=== PATIENT | female | born 1990 | race Caucasian/White ===

== ENCOUNTER → 2017-11-28 10:17 | Outpatient (CLI) | payer BC, SELFPAY ==
[2017-11-28 11:05] LABS: Basophils % 0.4 % (0.1-2.0); Eosinophils % 0.3 % (0.1-12.0); Hematocrit 43.4 % (37.0-47.0); Hemoglobin 14.7 g/dL (12.2-16.2); Lymphocytes # 1.7 K/mm3 (0.7-4.5); Lymphocytes % 19.2 K/mm3 (10-50); Mean Corpuscular HGB Conc 33.8 g/dL (31.8-35.4); Mean Corpuscular Hemoglobin 31.4 pg (27.0-31.2); Mean Corpuscular Volume 92.7 fl (81-99); Mean Platelet Volume 9.1 fl (7.4-10.4); Monocytes # 0.5 K/mm3 (0.1-1.0); Monocytes % 5.5 % (1.7-9.3); Neutrophils # 6.5 K/mm3 (1.8-7.8); Neutrophils % 74.5 % (37.0-80.0); Platelet Count 217 K/mm3 (142-424); Red Blood Count 4.68 M/mm3 (4.20-5.40); White Blood Count 8.7 K/mm3 (4.8-10.8)
[2017-11-28 11:42] LABS: Alanine Aminotransferase 17 U/L (12-78); Albumin Level 4.2 gm/dL (3.4-5.0); Albumin/Globulin Ratio 1.2 (1.1-1.8); Alkaline Phosphatase 103 U/L (46-116); Aspartate Amino Transferase 14 U/L (15-37); Bilirubin,Total 0.4 mg/dL (0.2-1.0); Blood Urea Nitrogen 4 mg/dL (7-18); Calcium 9.4 mg/dL (8.5-10.1); Carbon Dioxide 29 mmol/L (21.0-32.0); Chloride 105 mmol/L (98-107); Creatinine,Serum 0.68 mg/dL (0.55-1.02); Estimated Glomerular Filt Rate 102 ml/min (>60); GFR (African American) 124 ML/MIN (>60); Globulin 3.4 gm/dl (1.3-3.2); Glucose 96 mg/dL (74-106); Sodium 142 mmol/L (136-145); Total Protein,Serum 7.6 gm/dL (6.4-8.2)
== END ==
PROVIDERS: Visit Provider Nurse Practitioner Family
DX: R10.30 Lower abdominal pain, unspecified (principal)
CPT/HCPCS: 36415; 80053; 85025

== ENCOUNTER → 2018-12-15 13:42 | Outpatient (CLI) | payer MEDICAID, SELFPAY ==
--- NOTE | 2018-12-15 13:47 | XR_ITS ---
XR chest 2V HISTORY: ITS.REASON: SOB, COUGH ORDERING PHYSICIAN: Unique Ervin APRN PATIENT AGE: 28 years COMPARISON: 08/26/2012 FINDINGS: The cardiomediastinal silhouette and pulmonary vascularity are within normal limits. The lungs are clear without infiltrates, suspicious nodules, or pleural effusions. There is a faint nodular opacity overlying the central aspect of the heart on the lateral view unchanged and may be due to a granuloma. There is minimal upper thoracic curvature convex right. IMPRESSION: No change with no acute finding
== END ==
PROVIDERS: PCP Nurse Practitioner Family; Visit Provider Nurse Practitioner Family
DX: R06.02 Shortness of breath (principal); R05 Cough
CPT/HCPCS: 71046

== ENCOUNTER → 2019-01-28 12:21 | Outpatient (CLI) | payer MEDICAID, SELFPAY ==
[2019-01-28 12:53] LABS: Basophils % 0.3 % (0.1-2.0); Eosinophils # 0.1 K/mm3 (0.0-0.4); Hemoglobin 13.9 g/dL (12.2-16.2); Lymphocytes # 1.7 K/mm3 (0.7-4.5); Lymphocytes % 31.1 % (10-50); Mean Corpuscular HGB Conc 32.3 g/dL (31.8-35.4); Mean Corpuscular Hemoglobin 29.2 pg (27.0-31.2); Mean Corpuscular Volume 90.3 fl (81-99); Mean Platelet Volume 8.7 fl (7.4-10.4); Monocytes # 0.4 K/mm3 (0.1-1.0); Monocytes % 7.2 % (1.7-9.3); Neutrophils # 3.3 K/mm3 (1.8-7.8); Neutrophils % 60.4 % (37.0-80.0); Platelet Count 251 K/mm3 (142-424); Red Blood Count 4.76 M/mm3 (4.20-5.40); Red Cell Distribution Width 13.1 % (11.5-17.5); White Blood Count 5.5 K/mm3 (4.8-10.8)
[2019-01-28 14:15] LABS: Strep Scrn Group A (Rapid) Negative (Negative)
[2019-01-28 14:30] LABS: Alanine Aminotransferase 19 U/L (12-78); Albumin Level 3.6 gm/dL (3.4-5.0); Albumin/Globulin Ratio 1.1 (1.1-1.8); Alkaline Phosphatase 79 U/L (46-116); Anion Gap 13.3 mEq/L (5-15); Bilirubin,Total 0.5 mg/dL (0.2-1.0); Blood Urea Nitrogen 7 mg/dL (7-18); Calcium 9.2 mg/dL (8.5-10.1); Carbon Dioxide 28 mmol/L (21.0-32.0); Chloride 106 mmol/L (98-107); Creatinine,Serum 0.64 mg/dL (0.55-1.02); Estimated Glomerular Filt Rate 109 ml/min (>60); Free Thyroxine Index 2.5 ug/dL (5.93-13.13); GFR (African American) 132 ML/MIN (>60); Globulin 3.2 gm/dl (1.3-3.2); Glucose 66 mg/dL (74-106); Sodium 143 mmol/L (136-145); T4 (Thyroxine) 7.7 ug/dl (4.7-13.3); Thyroid Stimulating Hormone 0.64 uIU/ml (0.358-3.740); Total Protein,Serum 6.8 gm/dL (6.4-8.2); Triiodothryronine (T3) Uptake 33 % (31-39)
[2019-01-28 14:41] LABS: Potassium 4.3 mmoL/L (3.5-5.1)
[2019-01-28 14:42] LABS: Aspartate Amino Transferase 16 U/L (15-37)
[2019-01-29 22:05] LABS: EBV Ab VCA, IgM <36.0 U/mL (0.0-35.9); Vitamin B12 174 pg/mL (232-1245)
== END ==
PROVIDERS: Visit Provider Nurse Practitioner Family
DX: J02.9 Acute pharyngitis, unspecified (principal); R53.81 Other malaise; R06.02 Shortness of breath
CPT/HCPCS: 36415; 80053; 82607; 84436; 84443; 84479; 85025; 86665; 87430

== ENCOUNTER → 2019-02-05 08:24 | Outpatient (CLI) | payer MEDICAID, SELFPAY ==
--- NOTE | 2019-02-05 08:30 | US_ITS ---
US abdomen limited History: Ordering Physician:Unique Ervin APRN Patient Age: 28 years Comparison:None Findings:The visualized portions of the IVC and pancreas appear normal. Liver and portal vein are unremarkable. Common bile duct is normal measuring 1.8 cm. There are numerous shadowing echogenic foci in the lumen of the gallbladder and one such focus measures 10 mm in size. There is no gallbladder wall thickening or pericholecystic fluid. Visualized portions of the right kidney appear normal. Impression: Uncomplicated cholelithiasis.
== END ==
PROVIDERS: PCP Internal Medicine Adolescent Medicine; Visit Provider Nurse Practitioner Family
DX: R10.11 Right upper quadrant pain (principal)
CPT/HCPCS: 76705

== ENCOUNTER → 2019-02-06 11:02 | Outpatient (CLI) | payer MEDICAID, SELFPAY | PROVIDERS: PCP Nurse Practitioner Family; Visit Provider Nurse Practitioner Family | DX: R06.02 Shortness of breath (principal) | CPT/HCPCS: 94060; 94640 ==

== ENCOUNTER → 2019-03-18 15:30 | Outpatient (CLI) | payer MEDICAID, SELFPAY ==
[2019-03-18 16:57] LABS: HCG Qualitative, Serum Negative (Negative)
== END ==
PROVIDERS: Visit Provider Surgery
DX: K80.20 Calculus of gallbladder without cholecystitis without obstruction (principal)
CPT/HCPCS: 36415; 84703

== ENCOUNTER → 2019-04-16 12:00 | Outpatient (CLI) | payer OTHER, SELFPAY ==
[2019-04-16 12:28] LABS: Basophils % 0.6 % (0.1-2.0); Eosinophils # 0.1 K/mm3 (0.0-0.4); Eosinophils % 0.9 % (0.1-12.0); Hematocrit 43.5 % (37.0-47.0); Hemoglobin 14.1 g/dL (12.2-16.2); Lymphocytes # 2.2 K/mm3 (0.7-4.5); Lymphocytes % 33.1 % (10-50); Mean Corpuscular HGB Conc 32.4 g/dL (31.8-35.4); Mean Corpuscular Hemoglobin 31.1 pg (27.0-31.2); Mean Corpuscular Volume 95.8 fl (81-99); Mean Platelet Volume 9.1 fl (7.4-10.4); Monocytes # 0.2 K/mm3 (0.1-1.0); Monocytes % 3.7 % (1.7-9.3); Neutrophils % 61.6 % (37.0-80.0); Platelet Count 269 K/mm3 (142-424); Red Blood Count 4.54 M/mm3 (4.20-5.40); Red Cell Distribution Width 13.1 % (11.5-17.5); White Blood Count 6.5 K/mm3 (4.8-10.8)
[2019-04-17 17:13] LABS: Vitamin B12 480 pg/mL (232-1245)
== END ==
PROVIDERS: Visit Provider Nurse Practitioner Family
DX: E53.8 Deficiency of other specified B group vitamins (principal)
CPT/HCPCS: 36415; 82607; 85025

== ENCOUNTER → 2019-11-24 10:03 | Outpatient (CLI) | payer OTHER, SELFPAY ==
[2019-11-24 10:22] LABS: Basophils % 0.3 % (0.1-2.0); Eosinophils % 0.5 % (0.1-12.0); Hematocrit 42.6 % (37.0-47.0); Hemoglobin 13.8 g/dL (12.2-16.2); Lymphocytes # 2.1 K/mm3 (0.7-4.5); Lymphocytes % 26.9 % (10-50); Mean Corpuscular HGB Conc 32.4 g/dL (31.8-35.4); Mean Corpuscular Hemoglobin 30.5 pg (27.0-31.2); Mean Corpuscular Volume 94.1 fl (81-99); Mean Platelet Volume 9.3 fl (7.4-10.4); Monocytes # 0.4 K/mm3 (0.1-1.0); Monocytes % 5.6 % (1.7-9.3); Neutrophils # 5.1 K/mm3 (1.8-7.8); Neutrophils % 66.6 % (37.0-80.0); Platelet Count 229 K/mm3 (142-424); Red Blood Count 4.52 M/mm3 (4.20-5.40); Red Cell Distribution Width 14.1 % (11.5-17.5); White Blood Count 7.7 K/mm3 (4.8-10.8)
[2019-11-24 10:54] LABS: Chloride 106 mmol/L (98-107); Sodium 127 mmol/L (136-145)
[2019-11-24 10:55] LABS: Potassium 4.4 mmoL/L (3.5-5.1)
[2019-11-24 10:57] LABS: Alanine Aminotransferase 11 U/L (12-78); Aspartate Amino Transferase 19 U/L (14-36); Blood Urea Nitrogen 7 mg/dl (7-17); Estimated Glomerular Filt Rate 98 ml/min (>60); GFR (African American) 118 ML/MIN (>60)
[2019-11-24 10:58] LABS: Albumin Level 4.3 g/dl (3.5-5.0); Albumin/Globulin Ratio 1.6 (1.1-1.8); Calcium 8.9 mg/dl (8.4-10.2); Globulin 2.7 g/dL (1.3-3.2); Glucose 101 mg/dl (74-100)
[2019-11-24 11:41] LABS: Anion Gap 0.4 mEq/L (5-15); Bilirubin,Total 0.2 mg/dl (0.2-1.3); Carbon Dioxide 25 mmol/L (22.0-30.0)
[2019-11-24 11:51] LABS: Alkaline Phosphatase 54 U/L (38-126)
== END ==
PROVIDERS: Visit Provider Nurse Practitioner Family
DX: R10.32 Left lower quadrant pain (principal)
CPT/HCPCS: 36415; 80053; 85025

== ENCOUNTER → 2019-11-25 10:02 | Outpatient (CLI) | payer OTHER, SELFPAY ==
--- NOTE | 2019-11-25 10:07 | CT_ITS ---
PROCEDURE: CT ABDOMEN PELVIS WO CON CLINICAL INDICATION: LT SIDED ABD PAIN Left-sided abdominal pain COMPARISON: ABDPELW/O CT ABD PELVIS W/O CONTRAST from 07/23/2012 TECHNIQUE: Axial images obtained with sagittal and coronal reformats. All CT scans at the facility use one or more dose reduction, viz: automated exposure control, ma/kV adjustment per patient size (including targeted exams where dose is matched to indication, i.e. head), or iterative reconstruction technique. FINDINGS: LOWER THORAX: No acute finding ABDOMEN & PELVIS: Prior cholecystectomy. The liver, spleen, adrenal glands, pancreas, and kidneys have an unremarkable unenhanced CT appearance. No intestinal obstruction or free air. There is a mild amount of retained colonic feces. There is a reported history of an appendectomy. There is a mild amount of fluid in the pelvic region within the cul-de-sac area. Tubal ligation clips are present. There is an additional clip in the left lower quadrant. No acute bony anomalies. IMPRESSION: 1. There is a mild amount of fluid in the cul-de-sac etiology indeterminate. 2. Otherwise negative CT abdomen pelvis without contrast. Dictated by: Phuc Alexander MD 11/25/2019 16:19 Electronically signed by Phuc Alexander MD in [place] 11/25/2019 16:19
== END ==
PROVIDERS: PCP Internal Medicine Adolescent Medicine; Visit Provider Nurse Practitioner Family
DX: R10.9 Unspecified abdominal pain (principal)
CPT/HCPCS: 74176

== ENCOUNTER → 2019-11-26 11:21 | Outpatient (CLI) | payer OTHER, SELFPAY ==
[2019-11-26 12:28] LABS: Alanine Aminotransferase 9 U/L (12-78); Albumin Level 4.3 g/dl (3.5-5.0); Albumin/Globulin Ratio 1.7 (1.1-1.8); Alkaline Phosphatase 58 U/L (38-126); Anion Gap 10.1 mEq/L (5-15); Aspartate Amino Transferase 18 U/L (14-36); Bilirubin,Total 0.4 mg/dl (0.2-1.3); Blood Urea Nitrogen 9 mg/dl (7-17); Calcium 9.4 mg/dl (8.4-10.2); Carbon Dioxide 26 mmol/L (22.0-30.0); Chloride 104 mmol/L (98-107); Estimated Glomerular Filt Rate 117 ml/min (>60); GFR (African American) 141 ML/MIN (>60); Globulin 2.5 g/dL (1.3-3.2); Glucose 90 mg/dl (74-100); Potassium 4.1 mmoL/L (3.5-5.1); Sodium 136 mmol/L (136-145); Total Protein,Serum 6.8 g/dl (6.3-8.2)
== END ==
PROVIDERS: Visit Provider Internal Medicine Adolescent Medicine
DX: E87.1 Hypo-osmolality and hyponatremia (principal)
CPT/HCPCS: 36415; 80053

== ENCOUNTER → 2020-07-04 11:03 | Outpatient (CLI) | payer OTHER, SELFPAY ==
[2020-07-04 12:30] LABS: HCG Qualitative, Serum Negative (Negative)
[2020-07-04 12:32] LABS: Triiodothryronine (T3) Uptake 31 % (23.5-40.5)
[2020-07-04 12:33] LABS: Free Thyroxine Index 3.4 ug/dL (5.93-13.13); T4 (Thyroxine) 10.9 ug/dl (5.53-11.0)
[2020-07-04 12:46] LABS: Thyroid Stimulating Hormone 1.02 uIU/mL (0.465-4.68)
[2020-07-05 10:28] LABS: FSH 2.6 mIU/mL (.); Prolactin 7.3 ng/mL (4.8-23.3)
== END ==
PROVIDERS: Visit Provider Nurse Practitioner Obstetrics & Gynecology
DX: N92.6 Irregular menstruation, unspecified (principal)
CPT/HCPCS: 36415; 83001; 83002; 84146; 84436; 84443; 84479; 84703

== ENCOUNTER → 2020-07-14 14:07 | Outpatient (CLI) | payer OTHER, SELFPAY ==
--- NOTE | 2020-07-14 14:07 | US_ITS ---
PROCEDURE: US TRANSVAGINAL Referring Doctor: Austin Rajput Patient Age:30Y CLINICAL INDICATION: pelvic pain, ovarian cysts pelvic pain 1 COMPARISON: US PTV US PELVIS-TRANSVAGINAL ONLY from 03/24/2015 FINDINGS: Retroflexed uterus. Slight difficult to measure size Uterus, measuring 5.5 cm X 4.3 cm x 5.4 cm Endometrial stripe. 6.2 mm Right ovary mildly enlarged; left normal size. Satisfactory color Doppler flow patterns bilaterally Small amount of free fluid cul-de-sac but most likely physiologic; a similar amount of fluid on March 2015 ultrasound Right ovary 4.05 Cm length x 2.28 cm x 3.3 cm . Cysts at the right ovary: Largest measuring nearly 1.7 cm x1.3 cm. 3 other smaller follicular cysts are seen at the margin measuring up to 8 mm each Left ovary 2.36 cm x 1.8 cm x 2.9 cm 2 small follicular cyst imaged F left ovary the largest measuring 7 mm,; the other 5 mm. IMPRESSION: Normal size retroflexed uterus. Larger right ovary, measuring up to 4.05 cm Right ovary cysts most evident-the largest measure up to 1.7 cm . Left ovary normal in size with smaller follicle cysts Minimal fluid cul-de-sac again noted Dictated by: Rich Ferro MD 07/15/2020 06:44 Rich Ferro MD in [place] 07/15/2020 06:44
== END ==
PROVIDERS: PCP Internal Medicine Adolescent Medicine; Visit Provider Nurse Practitioner Obstetrics & Gynecology
DX: R10.2 Pelvic and perineal pain (principal); N83.209 Unspecified ovarian cyst, unspecified side
CPT/HCPCS: 76830

== ENCOUNTER → 2020-08-09 11:30 | Outpatient (CLI) | payer OTHER, SELFPAY ==
[2020-08-10 11:04] LABS: Covid-19 Nasal PCR Sendout P&C Negative
== END ==
PROVIDERS: PCP Internal Medicine Adolescent Medicine; Visit Provider Internal Medicine Adolescent Medicine
DX: Z20.822 Contact with and (suspected) exposure to COVID-19 (principal)
CPT/HCPCS: U0004

== ENCOUNTER → 2020-09-14 17:16 | Outpatient (CLI) | payer OTHER, SELFPAY ==
[2020-09-17 08:23] LABS: Neisseria gonorrhoeae, NAA Negative (Negative)
== END ==
PROVIDERS: Visit Provider Nurse Practitioner Obstetrics & Gynecology
DX: R10.9 Unspecified abdominal pain (principal); Z72.51 High risk heterosexual behavior
CPT/HCPCS: 87491; 87591

== ENCOUNTER 2020-12-26 12:19 | Emergency (ER) | payer OTHER, SELFPAY ==
[2020-12-26 12:23] VITALS: BP 115/72; PULSE 87; RESP 17; TEMP 36.5; O2SAT 99; BMI 20.6
--- NOTE | 2020-12-26 12:32 | XR_ITS ---
PROCEDURE: XR FOOT RT MIN 3V CLINICAL INDICATION: injury COMPARISON: No exams were available for comparison FINDINGS: Mild irregularity of the base of the distal phalanx of the great toe may represent a subtle fracture. Clinical correlation for pain in this area is recommended. There is mild soft tissue swelling. 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 Joint spaces are normal. IMPRESSION: Mild irregularity of the base of the distal phalanx of the great toe may represent a subtle fracture. Clinical correlation for pain in this area is recommended. Mild soft tissue swelling. Dictated by: Elijah Grijalva 12/26/2020 13:23 Elijah Grijalva in [place] 12/26/2020 13:23
[2020-12-26 12:38] VITALS: BP 115/72; PULSE 87; RESP 17; TEMP 36.5; O2SAT 99
--- NOTE | 2020-12-26 12:56 | HMH.EDUTC ---
[place] Disposition Clinical Impression: Fracture of left great toe Qualifiers: Encounter type: initial encounter Fracture type: closed Phalanx: proximal Fracture alignment: nondisplaced Qualified Code(s): S92.415A - Nondisplaced fracture of proximal phalanx of left great toe, initial encounter for closed fracture Disposition: Home, Self-Care Condition on Discharge: Good Instructions: How to Use Crutches, Toe Fracture, DI for Toe Fracture, How to Use a Walking Boot Additional Instructions: Rest the extremity, apply ice for 15 minutes as tolerated three or four times per day, Elevate the extremity as tolerated while you are resting. Take ibuprofen for pain. I sent in a prescription to your pharmacy. Follow up with Dr. Jackson (podiatry). I put in a referral but you need to call her office and schedule an appointment. Follow up with your regular doctor. GO TO THE ER FOR ANY WORSENING SYMPTOMS Prescriptions: Ibuprofen [Ibuprofen 600mg Tablet] 600 mg PO Q6HP PRN #30 tab PRN Reason: Mild Pain Transmission Status: Received by [facility] Referrals: Earl Hong MD [Primary Care Provider] - Kathrin Jackson DPM [Staff Physician] - Forms: Work/School Release Time of Disposition: 13:51 Medical Decision Making - Medical Records Medical records reviewed: No: I reviewed the patient's medical records. - [place] Inquiry Pt receiving controlled substance: No Vital Signs: 12/26/20 12:23 12/26/20 12:38 Temperature 97.7 F 97.7 F Temperature Source Oral Pulse Rate 87 Pulse Rate [Left] 87 Respiratory Rate 17 17 Blood Pressure 115/72 Blood Pressure [Right Arm] 115/72 Blood Pressure Mean [Right Arm] 86 02 Sat by Pulse Oximetry 99 - Radiology Data #1 Image(s): Foot/Toes Image Reviewed: Yes I reviewed the patient's radiology image, Yes I have reviewed radiologist's interpretation Preliminary Findings: Abnormal PROCEDURE: XR FOOT RT MIN 3V CLINICAL INDICATION: injury COMPARISON: No exams were available for comparison FINDINGS: Mild irregularity of the base of the distal phalanx of the great toe may represent a subtle fracture. Clinical correlation for pain in this area is recommended. There is mild soft tissue swelling. 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 Joint spaces are normal. IMPRESSION: Mild irregularity of the base of the distal phalanx of the great toe may represent a subtle fracture. Clinical correlation for pain in this area is recommended. Mild soft tissue swelling. Dictated by: Elijah Grijalva 12/26/2020 13:23 Elijah Grijalva in [place] 12/26/2020 13:23 [place] HPI - General Stated complaint: AO [id number] Rt toe injury Time Seen by Provider: 12/26/20 12:56 Mode of Arrival: Ambulatory Source of Information: Patient Limitations: No Limitations Description of Symptoms (Recalled from Triage Doc. by RN): Pt states that she hit her right big toe on a picnic bench last night. Right first digit toe pain. HEENT Symptoms (Recalled from RN notes): No Resp Symptoms (Recalled from RN notes): No Skin Symptoms (Recalled from RN notes): No MS Symptoms (Recalled from RN notes): Yes Functional Status (Recalled from RN notes): wnl - History of Present Illness Provider Complaint: She states that a picnic table turned over and came down on her left foot. This happened yesterday. Since then she has had pain and bruising of her right foot at the base of her great toe. She states that walking on the foot and bearing weight on it makes the pain worse. - Related Data Home Medications Medication Instructions Recorded Confirmed promethazine 12.5 mg tablet 12.5 mg PO tab 09/14/20 09/14/20 Previous Rx's Medication Instructions Recorded escitalopram oxalate 10 mg tablet 10 mg PO DAILY #30 tab 09/14/20 oxycodone-acetaminophen 5 mg-325 1 tab PO Q6H PRN #20 tab 09/14/20 mg tablet Ibuprofen [Ibuprofen 600mg 600 mg PO Q6HP PRN #30 tab 12/26/20 T
== END 2020-12-26 13:58 | disposition home or self-care (01) ==
PROVIDERS: Emergency Provider Nurse Practitioner Family; PCP Internal Medicine Adolescent Medicine
DX: S92.401A Displaced unspecified fracture of right great toe, initial encounter for closed fracture (principal); W22.8XXA Striking against or struck by other objects, initial encounter; Y92.019 Unspecified place in single-family (private) house as the place of occurrence of the external cause; F41.9 Anxiety disorder, unspecified; F17.210 Nicotine dependence, cigarettes, uncomplicated
CPT/HCPCS: 29515; 73630; 99203; G0463

== ENCOUNTER → 2021-01-31 10:15 | Outpatient (CLI) | payer OTHER, SELFPAY ==
--- NOTE | 2021-01-31 10:20 | XR_ITS ---
PROCEDURE: XR FOOT WT BEARING RT 3V CLINICAL INDICATION: fracture of right great toe follow up. COMPARISON: CR XR FOOT RT MIN 3V from 12/26/2020 FINDINGS: Healing fracture of the base of the distal phalanx of the right 1st digit is again noted, demonstrates adjacent callus formation. The fracture line is less distinct on the current study. Osteopenia is noted. There is shortening of the 4th metatarsal, developmental. No interval change is noted. No significant soft tissue abnormality. IMPRESSION: Healing fracture of the base of the distal phalanx of the right 1st digit. Dictated by: Melyssa Sanchez 01/31/2021 11:25 Melyssa Sanchez in [place] 01/31/2021 11:25
== END ==
PROVIDERS: PCP Internal Medicine Adolescent Medicine; Visit Provider Nurse Practitioner
DX: S92.401A Displaced unspecified fracture of right great toe, initial encounter for closed fracture (principal); T14.8XXA Other injury of unspecified body region, initial encounter
CPT/HCPCS: 73630

== ENCOUNTER → 2021-02-17 09:28 | Outpatient (CLI) | payer OTHER, SELFPAY | PROVIDERS: Visit Provider Internal Medicine Adolescent Medicine | DX: R68.89 Other general symptoms and signs (principal) | CPT/HCPCS: 87086 ==

== ENCOUNTER 2021-05-26 13:26 | Emergency (ER) | payer OTHER, SELFPAY ==
[2021-05-26 14:15] VITALS: BP 0/0; PULSE 0; RESP 0; TEMP -17.7; TEMP 0
== END 2021-05-26 14:20 | disposition left against medical advice (07) ==
LOC: UTC 13:29
PROVIDERS: Emergency Provider Nurse Practitioner; PCP Internal Medicine Adolescent Medicine
DX: Z53.21 Procedure and treatment not carried out due to patient leaving prior to being seen by health care provider (principal)

== ENCOUNTER → 2021-09-15 14:52 | Outpatient (CLI) | payer OTHER, SELFPAY ==
--- NOTE | 2021-09-15 14:52 | US_ITS ---
FINAL REPORT CLINICAL HISTORY: Pelvic pain and irregular periods/no period FINDINGS: Transvaginal sonographic images of the pelvis were obtained. The uterus is retroverted and measures 7.5 x 5.8 x 4.9 cm. The endometrium measures 8 mm, which is within normal limits. No uterine mass is identified. The right ovary measures 3.8 cm in length and left ovary measures 4.0 cm in length. Normal blood flow seen to the ovaries. There is a 2.3 cm right ovarian cyst. There is a small amount of free fluid. There is prominent parauterine vessels which may represent pelvic congestion syndrome IMPRESSION: 2.3 cm right ovarian cyst. Small amount of free fluid. Prominent parauterine vessels, may represent pelvic congestion syndrome. Reviewed, Interpreted and Dictated by Adrien Parada III, MD Transcribed by Rosanna Jimenez Authenticated by Adrien Parada III, MD on 09/15/2021 04:24:32 PM [facility]
== END ==
PROVIDERS: PCP Internal Medicine Adolescent Medicine; Visit Provider Nurse Practitioner Obstetrics & Gynecology
DX: R10.2 Pelvic and perineal pain (principal); N92.6 Irregular menstruation, unspecified
CPT/HCPCS: 76830

== ENCOUNTER 2021-11-13 12:44 | Emergency (ER) | payer OTHER, SELFPAY ==
[2021-11-13 13:47] VITALS: BP 0/0; PULSE 0; RESP 0; TEMP -17.7; TEMP 0
== END 2021-11-13 13:48 | disposition left against medical advice (07) ==
LOC: UTC 12:49
PROVIDERS: Emergency Provider Nurse Practitioner Family; PCP Internal Medicine Adolescent Medicine
DX: Z53.21 Procedure and treatment not carried out due to patient leaving prior to being seen by health care provider (principal)

== ENCOUNTER → 2021-11-14 12:04 | Outpatient (CLI) | payer OTHER, SELFPAY | PROVIDERS: Visit Provider Nurse Practitioner Obstetrics & Gynecology | DX: R30.0 Dysuria (principal); R39.9 Unspecified symptoms and signs involving the genitourinary system; B95.1 Streptococcus, group B, as the cause of diseases classified elsewhere | CPT/HCPCS: 87086; 87088; 87186 ==

== ENCOUNTER 2021-11-17 09:05 | Emergency (ER) | payer OTHER, SELFPAY ==
[2021-11-17 09:28] VITALS: PULSE 89; RESP 16; TEMP 37; O2SAT 98; BMI 20.6
--- NOTE | 2021-11-17 09:29 | XR_ITS ---
FINAL REPORT CLINICAL HISTORY: abdominal pain FINDINGS: TWO-VIEW ABDOMEN Flat and upright views of the abdomen were obtained. There is a nonobstructive bowel gas pattern. There is no free air. There is no abnormal calcification. The bony structures are intact. IMPRESSION: No acute abnormality. Reviewed, Interpreted and Dictated by Gerardo Basilio MD Transcribed by Crissy Aggarwal Authenticated by Gerardo Basilio MD on 11/17/2021 10:42:24 AM [facility]
[2021-11-17 11:04] LABS: Basophils # 0.2 K/mm3 (0-0.2); Basophils % 2.2 % (0.1-2.0); Eosinophils # 0.1 K/mm3 (0.0-0.4); Hematocrit 47.8 % (37.0-47.0); Hemoglobin 15.7 g/dL (12.2-16.2); Lymphocytes % 27.1 % (10-50); Mean Corpuscular HGB Conc 32.8 g/dL (31.8-35.4); Mean Corpuscular Hemoglobin 32.2 pg (27.0-31.2); Mean Corpuscular Volume 98.4 fl (81-99); Mean Platelet Volume 9.8 fl (7.4-10.4); Monocytes # 0.4 K/mm3 (0.1-1.0); Monocytes % 4.9 % (1.7-9.3); Neutrophils # 4.9 K/mm3 (1.8-7.8); Neutrophils % 64.9 % (37.0-80.0); Platelet Count 218 K/mm3 (142-424); Red Blood Count 4.86 M/mm3 (4.20-5.40); White Blood Count 7.6 K/mm3 (4.8-10.8)
[2021-11-17 11:08] VITALS: BP 0/0; PULSE 89; RESP 16; TEMP 37
[2021-11-17 11:10] LABS: Chloride 107 mmol/L (98-107); Sodium 141 mmol/L (136-145)
[2021-11-17 11:12] LABS: Blood Urea Nitrogen 5 mg/dl (7-17); Creatinine Clearance Estimated 122 mL/min (50-200); Estimated Glomerular Filt Rate 115 ml/min (>60); GFR (African American) 139 ML/MIN (>60)
[2021-11-17 11:13] LABS: Alanine Aminotransferase 15 U/L (12-78); Albumin Level 4.2 g/dl (3.5-5.0); Albumin/Globulin Ratio 1.6 (1.1-1.8); Alkaline Phosphatase 64 U/L (38-126); Aspartate Amino Transferase 21 U/L (14-36); Bilirubin,Total 0.8 mg/dl (0.2-1.3); Calcium 9.5 mg/dl (8.4-10.2); Carbon Dioxide 27 mmol/L (22.0-30.0); Globulin 2.7 g/dL (1.3-3.2); Glucose 100 mg/dl (74-100); Total Protein,Serum 6.9 g/dl (6.3-8.2)
[2021-11-17 11:31] LABS: T4 (Thyroxine) 10.9 ug/dl (5.53-11.0)
[2021-11-17 11:44] LABS: Thyroid Stimulating Hormone 0.55 uIU/mL (0.465-4.68)
--- NOTE | 2021-11-17 12:28 | HMH.EDNVD ---
[place] Disposition Clinical Impression: Constipation Qualifiers: Constipation type: unspecified constipation type Qualified Code(s): K59.00 - Constipation, unspecified Disposition: Home, Self-Care Condition on Discharge: Good Instructions: DI for Acute Abdominal Pain, DI for Constipation Additional Instructions: Follow-up about your lab results Take medication given as prescribed If problems persistent go to the ER per providers orders Prescriptions: Lactulose [Lactulose 20gm/30ml Oral Soln] 20 gm PO BID 10 Days #600 ml Transmission Status: Pending to [facility] polyethylene glycoL 3350 [Miralax 17gm Packet] 17 gm PO DAILY #30 packet Transmission Status: Pending to [facility] Referrals: Earl Hong MD [Primary Care Provider] - Forms: Work/School Release - Critical Care Critical Care Time: No Attestation: On 11/17/21, the high probability of a clinically significant, sudden or life threatening deterioration of the following system(s) required my full and direct attention, intervention and personal management. The time I documented below is in addition to time spent performing reported procedures but includes the following listed in this critical care notation. Medical Decision Making - Medical Records Medical records reviewed: Yes: I reviewed the patient's medical records. - [place] Inquiry Pt receiving controlled substance: No Vital Signs: 11/17/21 09:28 11/17/21 11:08 Temperature 98.6 F 98.6 F Temperature Source Oral Pulse Rate 89 Pulse Rate [Left] 89 Respiratory Rate 16 16 Blood Pressure 0/0 L 02 Sat by Pulse Oximetry 98 - Lab Data Lab results reviewed: Yes: I reviewed the patient's lab results. Lab Results 11/17/21 10:53: WBC 7.6, RBC 4.86, Hgb 15.7, Hct 47.8 H, MCV 98.4, MCH 32.2 H, MCHC 32.8, RDW 14.0, Plt Count 218, MPV 9.8, Neut % (Auto) 64.9, Lymph % (Auto) 27.1, Wharton % (Auto) 4.9, Eos % (Auto) 1.0, Baso % (Auto) 2.2 H, Neut # (Auto) 4.9, Lymph # (Auto) 2.0, Wharton # (Auto) 0.4, Eos # (Auto) 0.1, Baso # (Auto) 0.2 11/17/21 10:53: Sodium 141, Potassium 4.0, Chloride 107, Carbon Dioxide 27, Anion Gap 11.0, BUN 5 L, Creatinine 0.60, Estimated Creat Clear 122, Estimated GFR 115, Est GFR ( Amer) 139, Glucose 100, Calcium 9.5, Total Bilirubin 0.8, AST 21, ALT 15, Alkaline Phosphatase 64, Total Protein 6.9, Albumin 4.2, Globulin 2.7, Albumin/Globulin Ratio 1.6, TSH 0.55, Thyroxine (T4) 10.9 Result diagrams: 11/17/21 10:53 11/17/21 10:53 - Radiology Data #1 Image(s): Abdomen Image Reviewed: Yes I have reviewed radiologist's interpretation Preliminary Findings: Normal/NAD (nonspecific) Medical Decision Narrative: has new constipation will check labs and xray andtrial of meds - may require ct and colonoscopy - discussed possible early sbo Nausea/Vomiting/Diarrhea HPI - General Stated complaint: unable to use restroom Time Seen by Provider: 11/17/21 10:00 Mode of Arrival: Ambulatory Source of Information: Patient Limitations: No Limitations Description of Symptoms (Recalled from ER Triage Doc. by RN): pt states that she seen her PCP on saturday. he told her that if she did not feel better by today to get an xray of abd. that is what she is here for. she states that she is still having abdominal pain - History of Present Illness HPI Narrative: pt reports over the last few days has constipation which is new for pt - some cramps and no fever or vomiting - has seen pcp and told to use otc meds and enema - no sig results - has had surg in past MD complaint: nausea, abdominal pain, other (constopation) Onset (ago): day(s) Associated Abdominal Pain: Yes Location of pain: diffuse Severity: mild Quality: cramping Context: history of abdominal surgery Associated symptoms: denies other symptoms - Related Data Previous Rx's Medication Instructions Recorded ondansetron 4 mg disintegrating 4 mg PO Q8H #30 tab 09/06/21 tablet nitro
[2021-11-17 13:18] LABS: HCG Qualitative, Serum Negative (Negative)
== END 2021-11-17 14:30 | disposition home or self-care (01) ==
PROVIDERS: Emergency Provider Emergency Medicine; PCP Internal Medicine Adolescent Medicine
DX: K59.00 Constipation, unspecified (principal); Z88.2 Allergy status to sulfonamides; F41.9 Anxiety disorder, unspecified
CPT/HCPCS: 74019; 80053; 84436; 84443; 84703; 85025; 99213; G0463

== ENCOUNTER 2021-12-31 19:21 | Emergency (ER) | payer OTHER, SELFPAY ==
[2021-12-31 19:47] VITALS: BP 123/85; PULSE 81; RESP 16; TEMP 36.8; O2SAT 100; BMI 20.5
[2021-12-31 20:11] LABS: Apearance,Urine Turbid (Clear); Color,Urine Yellow (Yellow)
[2021-12-31 20:12] LABS: Bilirubin,Urine Negative (Negative); Blood, Urine Negative (Negative); Glucose,Urine (UA) Negative (Negative); Ketones,Urine Negative (Negative); PH,Urine 8.5 (5.0-8.5); Protein,Urine Negative (Negative); UTC Leukocyte Esterase,Urine 1+ (Negative); UTC Nitrate,Urine Negative (Negative); UTC Pregnancy Test, Urine Negative (Negative); Urobilinogen,Urine 1 EU/dl (0.2)
--- NOTE | 2021-12-31 20:48 | HMH.EDUTC ---
[facility] [place] Clinical Impression: Nausea Disposition: Home, Self-Care Condition on Discharge: Good Instructions: DI for Nausea -- Adult Additional Instructions: Drink plenty of fluids. Take tylenol for pain or fever. Take the medications as directed. Follow up with your regular doctor. GO TO THE ER FOR ANY WORSENING SYMPTOMS The promethazine (phenergran) will make you drowsy, so don't drive or operate heavy machinery after taking it. Prescriptions: Promethazine HCl [Phenergan 25mg tab] 25 mg PO Q6H PRN #20 tab PRN Reason: Nausea And Vomiting Transmission Status: Received by [facility] Referrals: Unique Ervin APRN [Primary Care Provider] - Forms: Work/School Release Time of Disposition: 20:51 Medical Decision Making - Medical Records Medical records reviewed: No: I reviewed the patient's medical records. - [place] Inquiry Pt receiving controlled substance: No Vital Signs: 12/31/21 19:47 12/31/21 20:56 Temperature 98.2 F 98.2 F Temperature Source Oral Pulse Rate 81 Pulse Rate [Left Radial] 81 Respiratory Rate 16 18 Blood Pressure 123/85 Blood Pressure [Right Arm] 123/85 Blood Pressure Mean [Right Arm] 97 02 Sat by Pulse Oximetry 100 - Lab Data Lab results reviewed: Yes: I reviewed the patient's lab results. Lab Results 12/31/21 20:02: Urine Color Yellow, Urine Appearance Turbid, Urine pH 8.5, Ur Specific [place] 1.020, Urine Protein Negative, Urine Glucose (UA) Negative, Urine Ketones Negative, Urine Blood Negative, Urine Nitrate Negative, Urine Bilirubin Negative, Urine Urobilinogen 1, Ur Leukocyte Esterase 1+ A, Tst Clinic Negative Orders (Tests/Meds): ED MEDICATIONS Discontinued Medications Generic Name Dose Route Start Last Admin Trade Name Freq PRN Reason Stop Dose Admin Promethazine HCl 25 mg 12/31/21 20:35 12/31/21 20:43 Promethazine Hcl 25mg/Ml 1ml Vial IM 12/31/21 20:36 25 mg ONCE ONE Administration Sodium Chloride 25 ml 12/31/21 20:35 12/31/21 20:44 Sodium Chloride 0.9% 25ml Bag IV 12/31/21 20:36 Not Given ONCE ONE ORDERS Category Date Time Status Urine Culture Stat Micro 12/31/21 19:53 Received [facility] [place] - General Stated complaint: stomach pain and dizzy Time Seen by Provider: 12/31/21 20:00 HEENT Symptoms (Recalled from RN notes): No Resp Symptoms (Recalled from RN notes): No Skin Symptoms (Recalled from RN notes): No MS Symptoms (Recalled from RN notes): No Functional Status (Recalled from RN notes): wnl - History of Present Illness Provider Complaint: patient comes in for nausea, and belly pain. the pain is located on the left side of her abdomen. patient states she has had symtpoms since saturday. patient has been in and out of pcp office for simliar issues. medications that have beenprescribed are not helping - Related Data Previous Rx's Medication Instructions Recorded ondansetron 4 mg disintegrating 4 mg PO Q8H #30 tab 09/06/21 tablet nitrofurantoin 100 mg PO BID 10 Days #20 cap 11/13/21 monohydrate/macrocrystals 100 mg capsule phenazopyridine 100 mg tablet 100 mg PO TID PRN 3 Days #9 tab 11/13/21 Lactulose [Lactulose 20gm/30ml 20 gm PO BID 10 Days #600 ml 11/17/21 Oral Soln] polyethylene glycoL 3350 [Miralax 17 gm PO DAILY #30 packet 11/17/21 17gm Packet] Promethazine HCl [Phenergan 25mg 25 mg PO Q6H PRN #20 tab 12/31/21 tab] Allergies Allergy/AdvReac Type Severity Reaction Status Date / Time chocolate flavor Allergy Mild Rash Verified 11/17/21 09:32 Sulfa (Sulfonamide Allergy Mild Rash Verified 11/17/21 09:32 Antibiotics) - Worker's Comp Is this a Worker's Comp case?: No [facility] History - Hepatitis A Screen Attestation statement:: This patient has been screened for Hepatitis A risk factors. I have reviewed the patient's past medical history: Yes Medical History: Reports:: Anxiety Denies:: Cancer, Di
[2021-12-31 20:56] VITALS: BP 123/85; PULSE 81; RESP 18; TEMP 36.8
== END 2021-12-31 20:56 | disposition home or self-care (01) ==
PROVIDERS: Emergency Provider Nurse Practitioner Family; PCP Nurse Practitioner Family
DX: R11.0 Nausea (principal); R10.9 Unspecified abdominal pain; R42 Dizziness and giddiness
CPT/HCPCS: 81003; 81025; 87086; 96372; 99212; G0463

== ENCOUNTER 2022-05-07 07:47 | Emergency (ER) | payer OTHER, SELFPAY ==
[2022-05-07 08:00] VITALS: BP 115/78; BP 125/80; PULSE 107; PULSE 94; RESP 18; TEMP 36.7; O2SAT 100; BMI 19.7
[2022-05-07 08:01] VITALS: BMI 19.7
--- NOTE | 2022-05-07 08:03 | PC.NURSE ---
VASYL TERRELL at bedside.
--- NOTE | 2022-05-07 08:11 | HMH.EDHA ---
Discharge Plan Disposition Patient Disposition: Home, Self-Care Prescriptions Prescriptions: New cephalexin [cephalexin] 500 mg capsule 500 mg PO TID Qty: 30 0RF Referrals Follow up/Referrals: Earl Hong MD [Primary Care Provider] - See instructions Clinical Impressions Clinical Impression: Headache, Sinusitis Instructions Patient Instructions: DI for Sinusitis Discharge ED Provider: Toby Woodward Headache HPI General Chief Complaint: Headache Stated Complaint: Migrane, blurred vision, LT side numbness Time Seen by Provider: 05/07/22 08:05 Mode of Arrival: Ambulatory Source of Information: Patient and Medical Record Limitations: No Limitations Description of Symptoms (Recalled from ER Triage Doc. by RN): pt states she has had a migraine for 3 weeks with no relief, she reports vision changes, also states she woke up this morning with with throbbing pain in her L side from back, entire arm, and leg History of Present Illness HPI Narrative: pt reports migraine vaughn over the last few weeks with assoc blurred vision and tingling to lt side Complaint: migraine Onset (ago): week(s) Onset description: gradual Location: left Severity: moderate Quality: similar to previous headaches Relieving factors: prescription medication Treatments prior to arrival: migraine medication Related Data Previous Rx's Medication Instructions Recorded cephalexin 500 mg capsule 500 mg PO TID #30 caps 05/07/22 Allergies Allergy/AdvReac Type Severity Reaction Status Date / Time chocolate flavor Allergy Mild Rash Verified 01/26/22 09:30 ibuprofen Allergy Mild Vomiting Verified 05/07/22 08:07 Sulfa (Sulfonamide Allergy Mild Rash Verified 01/26/22 09:30 Antibiotics) [facility] History Hepatitis A Screen Attestation statement:: This patient has been screened for Hepatitis A risk factors. I have reviewed the patient's past medical history: Yes Medical History: Reports: Anxiety; Denies: Cancer, Diabetes Mellitus Type 1, Diabetes Mellitus Type 2, Internal Pacemaker, MRSA or Seizures Other Medical History: Denies Blood Transfusion Reaction Laterality Cases: Bilateral: Myringotomy (Ear Tubes) and Tonsillectomy Other Surgeries: No Pacemaker Amputation: No Fractures: No Social History Smoking Status: Current every day smoker Tobacco Type: cigarettes # Packs/Day (cigarettes): 1 #Yrs smoked (if former smoker): 6 Alcohol Intake: never Alcohol Intake Frequency:: other Occupational Status: other Housing: house Household Members: family Psychiatric History Pschychiatric History:: Reports: Anxiety Family Hx:: Cancer, Diabetes, Heart Attack, Hyperlipidemia, Hypertension and Stroke PFSH PFSH Social History Smoking Status: Current every day smoker tobacco type: cigarettes packs per day: 1 second hand exposure: No alcohol intake: never current occupational status: other Travel in the last 8 weeks: None household members: family housing: house current occupational exposures/hazards: No caffeine: Yes ROS Obtained: Yes All systems reviewed & no additional complaints except as documented Constitutional Constitutional: Denies fever(s) and Reports headache(s) ENT Ears, Nose, Mouth, and Throat: Denies dizziness, Reports headache(s) and Denies vertigo Cardiovascular Cardiovascular: Denies chest pain with activity Respiratory Respiratory: Denies cough Neurologic Neurologic: Reports as per HPI, Denies dizziness, Reports headache(s), Reports paresthesias, Denies seizure-like activity and Denies vertigo Physical Exam General General appearance: alert Head Head exam: normocephalic Eye Eye exam: Present PERRL and EOMI; Absent nystagmus ENT ENT exam: Present mucous membranes moist Neck Neck exam: Present trachea midline Respiratory Respiratory exam: Absent respiratory distress Cardiovascular Cardiovascular exam: Present regular rate Abdominal Exam Abdominal exam: Present soft; Absent tenderness Ext
--- NOTE | 2022-05-07 08:14 | CT_ITS ---
FINAL REPORT CLINICAL HISTORY: headache 3 weeks and left sided weakness FINDINGS: Axial images of the head were obtained without contrast. Coronal reformatted images were also obtained.This study was performed with techniques to keep radiation doses as low as reasonably achievable (ALARA). Individualized dose reduction techniques using automated exposure control or adjustment of mA and/or kV according to the patient's size were employed. There is no evidence of intracranial hemorrhage or mass. The ventricular size is within normal limits. There is no evidence of shift of the midline structures. No abnormal extra axial fluid collection is identified. No skull abnormality is seen on the bone window images. There is total opacification of the left sphenoid sinus consistent with sinusitis. IMPRESSION: No acute intracranial abnormality. Sphenoid sinusitis. Reviewed, Interpreted and Dictated by Adrien Parada III, MD Transcribed by Violeta Mcgill Authenticated and [facility]
--- NOTE | 2022-05-07 08:20 | PC.NURSE ---
Provided pt with warm blanket and turned lights off per patient's request. Call light within reach. No concerns voiced at this time.
[2022-05-07 08:30] VITALS: BP 103/66; PULSE 88; O2SAT 97
[2022-05-07 08:39] LABS: Basophils # 0.1 K/mm3 (0-0.2); Basophils % 1.2 % (0.1-2.0); Eosinophils # 0.1 K/mm3 (0.0-0.4); Hematocrit 49.7 % (37.0-47.0); Hemoglobin 15.1 g/dL (12.2-16.2); Lymphocytes # 1.8 K/mm3 (0.7-4.5); Lymphocytes % 25.7 % (10-50); Mean Corpuscular HGB Conc 30.5 g/dL (31.8-35.4); Mean Corpuscular Hemoglobin 30.4 pg (27.0-31.2); Mean Corpuscular Volume 99.8 fl (81-99); Mean Platelet Volume 9.5 fl (7.4-10.4); Monocytes # 0.3 K/mm3 (0.1-1.0); Monocytes % 4.3 % (1.7-9.3); Neutrophils # 4.7 K/mm3 (1.8-7.8); Neutrophils % 67.9 % (37.0-80.0); Platelet Count 227 K/mm3 (142-424); Red Blood Count 4.98 M/mm3 (4.20-5.40); Red Cell Distribution Width 13.5 % (11.5-17.5); White Blood Count 6.9 K/mm3 (4.8-10.8)
[2022-05-07 08:42] LABS: Chloride 104 mmol/L (98-107); Potassium 3.7 mmoL/L (3.5-5.1); Sodium 139 mmol/L (136-145)
[2022-05-07 08:45] LABS: Alanine Aminotransferase 19 U/L (12-78); Albumin Level 4.4 g/dl (3.5-5.0); Albumin/Globulin Ratio 1.5 (1.1-1.8); Alkaline Phosphatase 78 U/L (38-126); Anion Gap 10.7 mEq/L (5-15); Aspartate Amino Transferase 27 U/L (14-36); Bilirubin,Total 0.2 mg/dl (0.2-1.3); Blood Urea Nitrogen 7 mg/dl (7-17); Calcium 8.7 mg/dl (8.4-10.2); Carbon Dioxide 28 mmol/L (22.0-30.0); Creatinine Clearance Estimated 100 mL/min (50-200); Estimated Glomerular Filt Rate 96 ml/min (>60); GFR (African American) 117 ML/MIN (>60); Globulin 2.9 g/dL (1.3-3.2); Glucose 126 mg/dl (74-100); Total Protein,Serum 7.3 g/dl (6.3-8.2)
[2022-05-07 08:49] LABS: HCG Qualitative, Serum Negative (Negative)
--- NOTE | 2022-05-07 08:52 | PC.NURSE ---
radiology notified of neg preg for her ct head
--- NOTE | 2022-05-07 08:52 | PC.NURSE ---
Assisted pt to restroom and back to room. Collected urine sample and sent to lab. Provided pt with another warm blanket.
--- NOTE | 2022-05-07 08:53 | PC.NURSE ---
P transported to radiology via wheelchair.
[2022-05-07 08:59] LABS: Microscopic, Urine URINE MICROSCOPIC (MICROSCOPIC)
[2022-05-07 09:03] LABS: Appearance,Urine CLEAR (Clear); Bilirubin,Urine Negative (Negative); Blood, Urine Negative (Negative); Color,Urine YELLOW (Yellow); Glucose,Urine (UA) Negative (Negative); Ketones,Urine Negative (Negative); Leukocyte Esterase,Urine Negative (Negative); Nitrate,Urine Negative (Negative); PH,Urine 5.5 (5.0-8.5); Protein,Urine Negative (Negative); Specific Gravity, Urine 1.015 (1.005-1.030); Urobilinogen,Urine 0.2 EU/dl (0.2)
--- NOTE | 2022-05-07 09:05 | PC.NURSE ---
Pt returned from radiology via wheelchair.
[2022-05-07 09:22] LABS: Bacteria,Urine Trace /lpf; RBC,Urine Occasional #/hpf (0-3)
[2022-05-07 09:30] VITALS: BP 107/55; PULSE 69; O2SAT 100
[2022-05-07 10:00] VITALS: BP 90/48; PULSE 80; O2SAT 98
--- NOTE | 2022-05-07 10:01 | PC.NURSE ---
Pt asleep in room at this time.
[2022-05-07 10:23] VITALS: BP 103/56; PULSE 80; RESP 14; TEMP 36.9; O2SAT 100
--- NOTE | 2022-05-07 10:28 | PC.NURSE ---
Provided pt with warm blanket. No needs addressed at this time.
[2022-05-07 10:50] VITALS: BP 125/61; PULSE 84; RESP 16; TEMP 36.9; O2SAT 100
== END 2022-05-07 10:49 | disposition home or self-care (01) ==
PROVIDERS: Emergency Provider Emergency Medicine; PCP Internal Medicine Adolescent Medicine
DX: G43.909 Migraine, unspecified, not intractable, without status migrainosus (principal); H53.8 Other visual disturbances; R20.2 Paresthesia of skin; M54.9 Dorsalgia, unspecified; M79.602 Pain in left arm; M79.605 Pain in left leg; F41.9 Anxiety disorder, unspecified; F17.210 Nicotine dependence, cigarettes, uncomplicated; Z79.899 Other long term (current) drug therapy; Z88.2 Allergy status to sulfonamides; Z88.6 Allergy status to analgesic agent; Z91.018 Allergy to other foods; Z82.49 Family history of ischemic heart disease and other diseases of the circulatory system; Z83.3 Family history of diabetes mellitus; Z83.438 Family history of other disorder of lipoprotein metabolism and other lipidemia; Z80.9 Family history of malignant neoplasm, unspecified
CPT/HCPCS: 70450; 80053; 81001; 84703; 85025; 96361; 96374; 96375; 99285

== ENCOUNTER 2022-09-17 09:11 | Emergency (ER) | payer OTHER, SELFPAY ==
[2022-09-17 09:50] VITALS: BP 122/71; PULSE 99; RESP 20; TEMP 37.1; O2SAT 98; BMI 21.1
[2022-09-17 10:02] LABS: UTC Strep Screen (Rapid) Positive (Negative)
--- NOTE | 2022-09-17 10:18 | EXP.UTC ---
Discharge Plan Disposition Patient Disposition: Home, Self-Care Condition: Good Prescriptions Prescriptions: New amoxicillin 400 mg/5 mL suspension for reconstitution 500 mg PO BID 10 Days Qty: 125 0RF Referrals Follow up/Referrals: Earl Hong MD [Primary Care Provider] - See instructions Activity Restrictions/Add. Instructions Additional Instructions/Restrictions: *Monitor Temp, Over the counter Motrin or Tylenol as directed/as needed Tylenol every 4 hours and Motrin every 6 hours (as long as your family doctor has told you that you can take it) for fever or pain. and straight to ER if unable to lower temp less than 101.0 after medication given *Warm salt water gargles may help to soothe the throat *Throat Lozenges? *Warm fluids like tea with honey may help to soothe the throat? *Sleep elevated *Humidifier/Vaporizer *If you did not take Penicillin shot or was unable to, start taking antibiotic immediately and make sure that you take it for the FULL length of time although you should start to feel better in 24-48 hours *change toothbrush and toothpaste 24-48 hours after starting to take antibiotics so you do not reinfect yourself Monitor Temp. Tylenol and/or Ibuprofen as needed. ER if fever is no less than 101 despite alternating Tylenol and Ibuprofen * Encourage fluids, water, Gatorade, powerade, pedialyte if /toddler/or child *Cold fluids, popsicles and ice cream may feel good on his throat Follow up IMMEDIATELY for new or worsening symptoms or no Noticeable improvement over the next 48-72 hours. 911 for difficulty breathing or swallowing Clinical Impressions Clinical Impression: Strep throat Stand Alone Forms Stand Alone Forms: Work/School Release Instructions Patient Instructions: DI for Strep Throat, Strep Throat Discharge ED Provider: Ashley Hector [facility] General Stated complaint: Sore throat,fever Mode of Arrival: Ambulatory Source of Information: Patient Limitations: No Limitations Time Seen by Provider: 09/17/22 10:19 Description of Symptoms (Recalled from Triage Doc. by RN): sore throat, fever HEENT Symptoms (Recalled from RN notes): No Resp Symptoms (Recalled from RN notes): No Skin Symptoms (Recalled from RN notes): No MS Symptoms (Recalled from RN notes): No Functional Status (Recalled from RN notes): n/a History of Present Illness Provider Complaint: Patient states that she has been having sore throat and fever States that her kids have been having same symptoms so she came in with them Related Data Previous Rx's Medication Instructions Recorded amoxicillin 400 mg/5 mL oral 500 mg (6.25 mL) PO BID 10 days 09/17/22 suspension #125 mL Allergies Allergy/AdvReac Type Severity Reaction Status Date / Time chocolate flavor Allergy Mild Rash Verified 09/17/22 10:08 ibuprofen Allergy Mild Vomiting Verified 09/17/22 10:08 Sulfa (Sulfonamide Allergy Mild Rash Verified 09/17/22 10:08 Antibiotics) Worker's Comp Is this a Worker's Comp case?: [facility] Disclaimer: The information contained in this section may have been updated after the patient was seen, as this information can be updated by other users. Social History Smoking Status: Current every day smoker tobacco type: cigarettes packs per day: 1 second hand exposure: No alcohol intake: never current occupational status: other Travel in the last 8 weeks: None household members: family housing: house current occupational exposures/hazards: No caffeine: Yes ROS Obtained: Yes All systems reviewed & no additional complaints except as documented and Yes Systems reviewed as appropriate & no additional complaints except as documented Constitutional Constitutional: Reports system reviewed and no additional complaints, except as documented, Reports as per HPI, Reports fever(s) and Reports headache(s) ENT Ears, Nose, Mout
[2022-09-17 10:49] VITALS: BP 122/71; PULSE 99; RESP 20; TEMP 37.1; O2SAT 98
== END 2022-09-17 10:49 | disposition home or self-care (01) ==
PROVIDERS: Emergency Provider Nurse Practitioner; PCP Internal Medicine Adolescent Medicine
DX: J02.0 Streptococcal pharyngitis (principal)
CPT/HCPCS: 87880; 99212; 99213; G0463

== ENCOUNTER → 2022-12-05 23:14 | Outpatient (CLI) | payer OTHER, SELFPAY | PROVIDERS: PCP Internal Medicine Adolescent Medicine; Visit Provider Nurse Practitioner Obstetrics & Gynecology | DX: R31.9 Hematuria, unspecified (principal) | CPT/HCPCS: 87086 ==

== ENCOUNTER 2023-02-26 09:57 | Outpatient (CLI) | payer OTHER, SELFPAY ==
[2023-02-26 11:15] VITALS: BP 121/72; BP 127/70; PULSE 87; PULSE 90; RESP 20; TEMP 36.8; O2SAT 100
[2023-02-26 11:28] LABS: Alanine Aminotransferase 23 U/L (12-78); Albumin Level 4.5 g/dl (3.5-5.0); Albumin/Globulin Ratio 1.4 (1.1-1.8); Alkaline Phosphatase 75 U/L (38-126); Anion Gap 14.5 mEq/L (5-15); Aspartate Amino Transferase 33 U/L (14-36); Bilirubin,Total 0.3 mg/dl (0.2-1.3); Blood Urea Nitrogen 8 mg/dl (7-17); Carbon Dioxide 24 mmol/L (22.0-30.0); Chloride 108 mmol/L (98-107); Estimated Glomerular Filt Rate 114 ml/min (>60); GFR (African American) 138 ML/MIN (>60); Globulin 3.2 g/dL (1.3-3.2); Glucose 118 mg/dl (74-100); Potassium 3.5 mmoL/L (3.5-5.1); Sodium 143 mmol/L (136-145); Total Protein,Serum 7.7 g/dl (6.3-8.2)
[2023-02-26 11:33] LABS: Basophils % 0.4 % (0.1-2.0); Eosinophils # 0.1 K/mm3 (0.0-0.4); Eosinophils % 0.8 % (0.1-12.0); Hematocrit 48.3 % (37.0-47.0); Hemoglobin 15.7 g/dL (12.2-16.2); Lymphocytes % 21.5 % (10-50); Mean Corpuscular HGB Conc 32.5 g/dL (31.8-35.4); Mean Corpuscular Hemoglobin 32.1 pg (27.0-31.2); Mean Corpuscular Volume 98.7 fl (81-99); Mean Platelet Volume 10.4 fl (7.4-10.4); Monocytes # 0.4 K/mm3 (0.1-1.0); Monocytes % 4.4 % (1.7-9.3); Neutrophils # 6.7 K/mm3 (1.8-7.8); Neutrophils % 72.8 % (37.0-80.0); Platelet Count 182 K/mm3 (142-424); Red Blood Count 4.89 M/mm3 (4.20-5.40); Red Cell Distribution Width 13.4 % (11.5-17.5); White Blood Count 9.2 K/mm3 (4.8-10.8)
== END 2023-02-26 11:15 | disposition home or self-care (01) ==
LOC: INF 09:59
PROVIDERS: PCP Nurse Practitioner Family; Visit Provider Nurse Practitioner Family
DX: R10.30 Lower abdominal pain, unspecified (principal)
CPT/HCPCS: 36415; 80053; 85025; 96372

== ENCOUNTER → 2023-03-26 12:46 | Outpatient (CLI) | payer OTHER, SELFPAY ==
[2023-03-26 12:51] LABS: Adenovirus F 40/41, stool Not Detected (NotDetected); Astrovirus Not Detected (NotDetected); Campylobacter Not Detected (NotDetected); Clostridium Difficile A/B, PCR Not Detected (NotDetected); Cryptosporidium Not Detected (NotDetected); Cyclospora Cayetanesis Not Detected (NotDetected); Entamoeba histolytica Not Detected (NotDetected); Enteroaggregative E coli Not Detected (NotDetected); Enteropathogenic E coli Not Detected (NotDetected); Enterotoxigenic E coli Not Detected (NotDetected); Giardia lamblia Not Detected (NotDetected); Norovirus Not Detected (NotDetected); Plesimonas Shigalloides, PCR Not Detected (NotDetected); Rotavirus A Not Detected (NotDetected); Salmonella, PCR Not Detected (NotDetected); Sapovirus Not Detected (NotDetected); Shiga-like toxin E coli Not Detected (NotDetected); Shigella Enterovasive E coli Not Detected (NotDetected); Vibrio Cholerae Not Detected (NotDetected); Vibrio, PCR Not Detected (NotDetected); Yersinia Entercolitica, PCR Not Detected (NotDetected)
[2023-03-26 13:28] LABS: Occult Blood,Stool Negative (Negative)
== END ==
PROVIDERS: PCP Internal Medicine Adolescent Medicine; Visit Provider Nurse Practitioner Family
DX: R10.30 Lower abdominal pain, unspecified (principal); R19.5 Other fecal abnormalities; R10.9 Unspecified abdominal pain
CPT/HCPCS: 82272; 87507; G0328

== ENCOUNTER 2023-08-13 08:38 | Emergency (ER) | payer OTHER, SELFPAY ==
[2023-08-13 09:25] VITALS: BP 111/75; PULSE 76; RESP 20; TEMP 37.1; O2SAT 98; BMI 22.5
--- NOTE | 2023-08-13 09:45 | ED_ITS ---
Discharge Plan Disposition Patient Disposition: Home, Self-Care Condition: Good Prescriptions Prescriptions: New ondansetron 4 mg tablet,disintegrating 4 mg PO Q8H PRN (Reason: nausea and vomiting) Qty: 10 0RF Referrals Follow up/Referrals: Earl Hong MD [Primary Care Provider] - See instructions Activity Restrictions/Add. Instructions Additional Instructions/Restrictions: Drink extra fluids with and between meals. If you have difficulty drinking, try very small amounts of water or suck on ice chips. ? Avoid fruit juices, as these do not replace minerals and can actually increase diarrhea. ? Children and adults can use sports drinks to replenish electrolytes. Younger children and infants should use products formulated for children, like oral rehydration solutions. ? Eat food in small amounts and let your stomach recover. ? Get lots of rest. You may feel tired or weak. ? No greasy or fried foods for the next 24-48 hours BRAT diet Bananas Rice Apples and Weinert ? Make sure to drink plenty of liquids ? Return if needed ? Straight to ER if any life threatening symptoms ? Zofran as prescribed ? Follow up with family doctor in the next 48-72 hours if no improvement or any worsening of symptoms Clinical Impressions Clinical Impression: Viral syndrome Stand Alone Forms Stand Alone Forms: Work/School Release Instructions Patient Instructions: Nausea and Vomiting-Adult, Ondansetron Discharge ED Provider: Ashley Hector [facility] General Stated complaint: nausea, vomitting Mode of Arrival: Ambulatory Source of Information: Patient Limitations: No Limitations Time Seen by Provider: 08/13/23 09:45 Description of Symptoms (Recalled from Triage Doc. by RN): PATIENT C/O NAUSEA AND VOMITING SINCE THIS MORNING HEENT Symptoms (Recalled from RN notes): No Resp Symptoms (Recalled from RN notes): No Skin Symptoms (Recalled from RN notes): No MS Symptoms (Recalled from RN notes): No Functional Status (Recalled from RN notes): WNL History of Present Illness Provider Complaint: Patient states that she woke up this morning with nausea and vomiting States that she feels sick at her stomach like she has a stomach bug or something Denies fever, denies chills Related Data Previous Rx's Medication Instructions Recorded ondansetron 4 mg disintegrating 4 mg PO Q8H PRN nausea and 08/13/23 tablet vomiting #10 tabs Allergies Allergy/AdvReac Type Severity Reaction Status Date / Time chocolate flavor Allergy Mild Rash Verified 12/05/22 14:23 ibuprofen Allergy Mild Vomiting Verified 12/05/22 14:23 Sulfa (Sulfonamide Allergy Mild Rash Verified 12/05/22 14:23 Antibiotics) Worker's Comp Is this a Worker's Comp case?: No [facility] Disclaimer: The information contained in this section may have been updated after the patient was seen, as this information can be updated by other users. Medical History Anxiety Headache Surgical History History of cholecystectomy History of placement of ear tubes History of tonsillectomy Social History Smoking Status: Current every day smoker tobacco type: cigarettes packs per day: 1 second hand exposure: No alcohol intake: never current occupational status: other Travel in the last 8 weeks: None household members: family housing: house current occupational exposures/hazards: No caffeine: Yes ROS Obtained: Yes All systems reviewed & no additional complaints except as docu mented and Yes Systems reviewed as appropriate & no additional complaints except as documented Constitutional Constitutional: Reports system reviewed and no additional complaints, except as documented, Reports as per HPI, Denies body ache, Denies chills, Denies fever(s) and Denies headache(s) ENT Ears, Nose, Mouth, and Throat: Reports system reviewed and no additional complaints, except as documented, Reports as per HPI, Denies headache(s), Denies nasal congestion, Denies nasal discharge and Denies sore throat Cardiovascular Cardiovascular: Reports system reviewed and no additional complaints, except as documented and Reports as per HPI Respiratory Respiratory: Reports system reviewed and no additional complaints, except as documented and Reports as per HPI Gastrointestinal Gastrointestingal: Reports system reviewed and no additional complaints, except as documented, as per HPI, nausea and vomiting; Denies abdominal pain Neurologic Neurologic: Denies headache(s) Physical Exam General General appearance: alert and in no apparent distress ENT ENT exam: Present mucous membranes moist Respiratory Respiratory exam: Present normal lung sounds bilaterally; Absent respiratory distress or wheezes Cardiovascular Cardiovascular exam: Present regular rate, normal rhythm and normal heart sounds Abdominal Exam Abdominal exam: Present soft and normal bowel sounds; Absent distention or tenderness Neurological Exam Neurological exam: Present alert, oriented X3 and normal gait Medical Decision Making Cameron Inquiry Pt receiving controlled substance: No Cameron was queried for this patient: No Vital Signs: 08/13/23 09:25 Temperature 98.8 F Temperature Source Oral Pulse Rate [Left Brachial] 76 Respiratory Rate 20 Blood Pressure [Left Arm] 111/75 Blood Pressure Mean [Left Arm] 87 Blood Pressure Source [Left Arm] Automatic Cuff Blood Pressure Position [Left Arm] Sitting 02 Sat by Pulse Oximetry 98 Oxygen Delivery Method Room Air Lab Data Lab results reviewed: Yes I reviewed the patient's lab results. Medical Decision Narrative: Denies
[2023-08-13 10:01] VITALS: BP 111/75; PULSE 76; RESP 20; TEMP 37.1; O2SAT 98
[2023-08-13 10:02] LABS: UTC Strep Screen (Rapid) Negative (Negative)
== END 2023-08-13 10:11 | disposition home or self-care (01) ==
PROVIDERS: Emergency Provider Nurse Practitioner; PCP Internal Medicine Adolescent Medicine
DX: R11.2 Nausea with vomiting, unspecified (principal)
CPT/HCPCS: 87880; 99212; 99214; G0463

== ENCOUNTER 2023-10-16 18:55 | Emergency (ER) | payer OTHER, SELFPAY ==
[2023-10-16 19:05] VITALS: BP 121/78; PULSE 116; RESP 19; TEMP 36.9; O2SAT 99; BMI 21.6
[2023-10-16 19:13] VITALS: BP 121/78; PULSE 116; RESP 19; TEMP 36.9; O2SAT 99
[2023-10-16 19:23] LABS: UTC Influenza A Antigen Negative (Negative)
[2023-10-16 19:24] LABS: UTC Influenza B Antigen Negative (Negative)
[2023-10-16 19:24] LABS: UTC Strep Screen (Rapid) Negative (Negative)
--- NOTE | 2023-10-16 19:24 | EXP.UTC ---
Discharge Plan Disposition Patient Disposition: Home, Self-Care Condition: Good Referrals Follow up/Referrals: Earl Hong MD [Primary Care Provider] - See instructions Activity Restrictions/Add. Instructions Additional Instructions/Restrictions: *Monitor Temp, Over the counter Motrin or Tylenol as directed/as needed Tylenol every 4 hours and Motrin every 6 hours (as long as your family doctor has told you that you can take it) for fever or pain. and straight to ER if unable to lower temp less than 101.0 after medication given *Warm salt water gargles may help to soothe the throat *Throat Lozenges? *Warm fluids like tea with honey may help to soothe the throat? *Sleep elevated *Humidifier/Vaporizer Your throat swab was sent for culture. Those results are typically sent to your primary care. Be sure to follow up in 2-3 days with your family doctor/primary care physician if no improvement so they can review those result and treat if necessary. If you don?t have a primary care doctor, I recommend you get one but in the mean time, you will have to return to a walk in clinic Follow up IMMEDIATELY for new or worsening symptoms or no Noticeable improvement over the next 48-72 hours. 911 for difficulty breathing or swallowing You were tested for today for Upper Respiratory Panel with COVID19 your test result should be back in the next 24hours, you may check your results on the [facility] Clinical Impressions Clinical Impression: Viral syndrome Stand Alone Forms Stand Alone Forms: Work/School Release Instructions Patient Instructions: DI for Viral Syndrome Discharge ED Provider: Ashley Hector [facility] [place] General Stated complaint: sore throat, ear hurts, headache Mode of Arrival: Ambulatory Source of Information: Patient Limitations: No Limitations Time Seen by Provider: 10/16/23 19:30 Description of Symptoms (Recalled from Triage Doc. by RN): PATIENT C/O SORE THROAT, EAR PAIN, AND HEADACHE SINCE THIS MORNING HEENT Symptoms (Recalled from RN notes): Yes Resp Symptoms (Recalled from RN notes): No Skin Symptoms (Recalled from RN notes): No MS Symptoms (Recalled from RN notes): No Functional Status (Recalled from RN notes): WNL History of Present Illness Provider Complaint: Patient states that she woke up this morning not feeling well States that she was feeling achy, chills, sore throat, pain/pressure in her ears and headache States that she went on to work but continued to feel bad all day and this evening she was still feeling bad so she came in States that she has been around flu, strep, COVID and several of the other viruses going around Related Data Allergies Allergy/AdvReac Type Severity Reaction Status Date / Time chocolate flavor Allergy Mild Rash Verified 12/05/22 14:23 ibuprofen Allergy Mild Vomiting Verified 12/05/22 14:23 Sulfa (Sulfonamide Allergy Mild Rash Verified 12/05/22 14:23 Antibiotics) Worker's Comp Is this a Worker's Comp case?: No [facility] Disclaimer: The information contained in this section may have been updated after the patient was seen, as this information can be updated by other users. Medical History Anxiety Headache Surgical History History of cholecystectomy History of placement of ear tubes History of tonsillectomy Social History Smoking Status: Current every day smoker tobacco type: cigarettes packs per day: 1 second hand exposure: No alcohol intake: never current occupational status: other Travel in the last 8 weeks: None household members: family housing: house current occupational exposures/hazards: No caffeine: Yes ROS Obtained: Yes All systems reviewed & no additional complaints except as documented and Yes Systems reviewed as appropriate & no additional complaints except as documented Constitutional Constitutional: Reports system reviewed and no additional complaints, except as documented, Reports as per HPI, Reports body ache, Reports chills and Reports headache(s) ENT Ears, Nose, Mouth, and Throat: Reports system reviewed and no additional complaints, except as documented, Reports as per HPI, Reports otalgia, Reports headache(s), Reports nasal congestion and Reports sore throat Cardiovascular Cardiovascular: Reports system reviewed and no additional complaints, except as documented and Reports as per HPI Respiratory Respiratory: Reports system reviewed and no additional complaints, except as documented and Reports as per HPI Gastrointestinal Gastrointestingal: Reports system reviewed and no additional complaints, except as documented and as per HPI Neurologic Neurologic: Reports headache(s) Physical Exam General General appearance: alert and in no apparent distress ENT ENT exam: Present mucous membranes moist and TM's normal bilaterally Expanded ENT Exam Nose exam: Absent sinus tenderness Throat exam: Present normal inspection Respiratory Respiratory exam: Present normal lung sounds bilaterally; Absent respiratory distress or wheezes Cardiovascular Cardiovascular exam: Present regular rate, normal rhythm and tachycardia Abdominal Exam Abdominal exam: Present soft and normal bowel sounds; Absent distention or tenderness Neurological Exam Neurological exam: Present alert, oriented X3 and normal gait Medical Decision Making Cameron Inquiry Pt receiving controlled substance: No Cameron was queried for this patient: No Vital Signs: 10/16/23 19:05 10/16/23 19:13 Temperature 98.4 F 98.4 F Temperature Source Oral Pulse Rate 116 H Pulse Rate [Left Brachial] 116 H Respiratory Rate 19 19 Blood Pressure 121/78 Blood Pressure [Left Arm] 121/78 Blood Pressure Mean [Left Arm] 92 Blood Pressure Source [Left Arm] Automatic Cuff Blood Pressure Position [Left Arm] Sitting 02 Sat by Pulse Oximetry 99 Oxygen Delivery Method Room Air Lab Data Lab results reviewed: Yes I reviewed the patient's lab results.
[2023-10-16 19:46] LABS: Adenovirus,PCR Not Detected (NotDetected); Coronavirus 19, PCR Not Detected (NotDetected); Coronavirus 229E Not Detected (NotDetected); Coronavirus NL63 Not Detected (NotDetected); Coronavirus OC43 Not Detected (NotDetected); Coronovirus HKU1,PCR Not Detected (NotDetected); Human Metapneumovirus Not Detected (NotDetected); Influenza A, PCR Not Detected (NotDetected); Influenza AH1, 2009 Not Detected (NotDetected); Influenza AH1, PCR Not Detected (NotDetected); Influenza AH3,PCR Not Detected (NotDetected); Influenza B, PCR Not Detected (NotDetected); Parainfluenza 1, PCR Not Detected (NotDetected); Parainfluenza 2, PCR Not Detected (NotDetected); Parainfluenza 3, PCR Not Detected (NotDetected); Parainfluenza 4, PCR Not Detected (NotDetected); Respiratory Syncytial Virus Not Detected (NotDetected); Rhinovirus/Enterovirus Not Detected (NotDetected)
== END 2023-10-16 19:44 | disposition home or self-care (01) ==
PROVIDERS: Emergency Provider Nurse Practitioner; PCP Internal Medicine Adolescent Medicine
DX: R51.9 Headache, unspecified (principal); R07.0 Pain in throat; H92.03 Otalgia, bilateral; F17.210 Nicotine dependence, cigarettes, uncomplicated
CPT/HCPCS: 87632; 87635; 87804; 87880; 99212; 99213; G0463

== ENCOUNTER 2023-11-11 14:19 | Outpatient (CLI) | payer OTHER, SELFPAY ==
--- NOTE | 2023-11-11 14:22 | MM_ITS ---
PROCEDURE INFORMATION: Exam: US Left Breast, Complete MG Bilateral Diagnostic Breast Tomosynthesis Exam date and time: 11/11/2023 2:30 PM Age: 33 years old Clinical indication: Left breast palpable lump; Nipple discharge TECHNIQUE: Imaging protocol: Complete ultrasound of all four quadrants of the left breast and the retroareolar regions, including ultrasound of the axilla when performed. Bilateral Diagnostic tomosynthesis and 2D mammography including computer-aided detection (CAD) when performed. Unilateral or bilateral exam. COMPARISON: No relevant prior studies available. FINDINGS: MAMMOGRAPHY: Breast composition: There are scattered areas of fibroglandular density. Breast mammogram findings: A skin marker was placed over an area of palpable concern in the left 10 o'clock retroareolar region. There is no stellate mass, architectural distortion or suspicious microcalcifications in either breast to suggest malignancy. No skin thickening or axillary adenopathy. ULTRASOUND: Breast ultrasound findings: Sonographic images of the left breast including the retroareolar region, all 4 quadrants and the axilla demonstrates cursors of heterogeneous hypoechoic tissue corresponding to the area palpable concern in the 10 o'clock retroareolar region. This is a nonspecific finding and measures 1.5 x 1.4 x 0.5 cm in dimension. No other solid or cystic findings in the remainder of the left breast. No architectural distortion or acoustical shadowing. No skin thickening or axillary adenopathy. IMPRESSION: 1. Palpable abnormality in the left 10 o'clock retroareolar region corresponds sonographically to nonspecific hypoechoic tissue. Ultrasound-guided core biopsy is recommended to ensure benign etiology. 2. If nipple discharge is spontaneous and clear and/or hemorrhagic, breast MRI may be performed for further evaluation ASSESSMENT: BI-RADS Category 4: Suspicious.
== END 2023-11-11 23:59 | disposition home or self-care (01) ==
LOC: RAD 14:19
PROVIDERS: PCP Internal Medicine Adolescent Medicine; Visit Provider Nurse Practitioner Family
DX: N63.25 Unspecified lump in the left breast, overlapping quadrants (principal); N64.52 Nipple discharge
CPT/HCPCS: 76641; 77062; 77066; G0279

== ENCOUNTER 2023-11-20 08:24 | Outpatient (CLI) | payer OTHER, SELFPAY ==
--- NOTE | 2023-11-20 08:27 | US_ITS ---
FINAL REPORT CLINICAL HISTORY: MASS OVERLAPPING MULTIPLE QUADRANTS OF LT BREAST-- mammatome lt side-- dr chávez FINDINGS: ULTRASOUND-GUIDED LEFT BREAST CORE BIOPSY HISTORY: Left breast mass retroareolar region TECHNIQUE: The left breast was prepped in a routine sterile fashion and locally anesthetized with 1% lidocaine. Initially a lateral to medial approach was attempted. However the needle could not be fully advanced due to breast ligaments creating significant resistance. A medial to lateral approach was required. An 11-gauge vacuum-assisted hand-held device was utilized. The needle was positioned posterior to the lesion. Multiple vacuum assisted core samples were obtained. Lesion was noted to be significantly smaller following biopsy. A biopsy marker clip was deployed in satisfactory position. A post biopsy mammogram was performed and dictated separately. Limited postbiopsy images showed no evidence of significant hemorrhage. Marker clip is noted to be in satisfactory position. Procedure was well tolerated. IMPRESSION: 1. Technically successful guided vaccuum assisted core biopsy of left breast lesion as above. 2. Biopsy marker clip deployed Histopathology results reveal sclerosing adenosis without atypia or carcinoma. Pathology is concordant with mammographic findings. Recommend 6-month mammographic follow-up as routine post benign biopsy surveillance Authenticated and ERN
--- NOTE | 2023-11-20 08:28 | MM_ITS ---
FINAL REPORT CLINICAL HISTORY: post biopsy, CLIP PLACEMENT FINDINGS: MAMMOGRAM LEFT 2D TECHNIQUE: Standard digital 2D views HISTORY: Abnormal mammogram. Recent biopsy. COMPARISON: 11/11/2023 DENSITY: There are scattered areas of fibroglandular density FINDINGS: Post biopsy marker clip is noted in satisfactory position. Postbiopsy changes are noted. IMPRESSION: Biopsy marker clip in good position RECOMMENDATION: Given benign findings on histopathology, 6-month mammographic and sonographic follow-up is recommended as normal post benign biopsy surveillance Authenticated and ERN
== END 2023-11-20 23:59 | disposition home or self-care (01) ==
LOC: RAD 08:24
PROVIDERS: PCP Nurse Practitioner Family; Visit Provider Nurse Practitioner Family
DX: N63.25 Unspecified lump in the left breast, overlapping quadrants (principal); N64.52 Nipple discharge
CPT/HCPCS: 19083; 77065; C2618

== ENCOUNTER 2024-04-21 15:42 | Emergency (ER) | payer OTHER, SELFPAY ==
[2024-04-21 15:57] VITALS: BP 138/84; PULSE 101; RESP 18; TEMP 36.6; O2SAT 100; BMI 19.3
--- NOTE | 2024-04-21 16:09 | EXP.UTC ---
Discharge Plan Disposition Patient Disposition: Home, Self-Care Condition: Good Prescriptions Prescriptions: New methocarbamol 500 mg tablet 500 mg PO TID PRN (Reason: muscle spasm) Qty: 15 0RF No Action levocetirizine 5 mg tablet 5 mg PO Referrals Follow up/Referrals: Unique Ervin APRN [Primary Care Provider] - See instructions Activity Restrictions/Add. Instructions Additional Instructions/Restrictions: Take Ibuprofen as you was prescribed May take Tylenol as directed on bottle Muscle rubs like Biofreeze may help with pain and muscle soreness Soak in warm water with epson salt may help with soreness Follow up with your Family Doctor if no improvement or any worsening of symptoms Straight to ER if any life threatening symtoms Clinical Impressions Clinical Impression: Fall Stand Alone Forms Stand Alone Forms: Work/School Release Instructions Patient Instructions: DI for Contusion, Ibuprofen Print Language Print Language: Spanish Discharge ED Provider: Ashley H[place] [facility] [place] General Stated complaint: AO 10-5 lower back to left leg pain Mode of Arrival: Ambulatory Source of Information: Patient Limitations: No Limitations Time Seen by Provider: 04/21/24 16:09 Description of Symptoms (Recalled from Triage Doc. by RN): Reports falling off of a four mccollum on Saturday landing on a rock. Complaint of lower back, butt and hip pain. HEENT Symptoms (Recalled from RN notes): No Resp Symptoms (Recalled from RN notes): No Skin Symptoms (Recalled from RN notes): No MS Symptoms (Recalled from RN notes): Yes Functional Status (Recalled from RN notes): wnl History of Present Illness Provider Complaint: Patient states that she was riding on the back of four mccollum over the weekend and they was going up some rocks slowly when she slide off the back and wasnt able to catch her self and and fell and landed on feet then on her butt on the rocks states that since then she has been having pain in her buttock area and her left hip that is worse when she sits on it or moves certain ways and spasm like feeling in her lower left back area when the pain hits, Denies loss of control of bowel or bladder and denies any other injury states worried she may have broken her tail bone States that she has been working and walking since the fall Related Data Home Medications ?Medication ?Instructions ?Recorded ?Confirmed levocetirizine 5 mg tablet 5 mg PO 12/11/23 12/11/23 Previous Rx's ?Medication ?Instructions ?Recorded methocarbamol 500 mg tablet 500 mg PO TID PRN muscle spasm #15 04/21/24 tabs Allergies Allergy/AdvReac Type Severity Reaction Status Date / Time chocolate flavor Allergy Mild Rash Verified 12/11/23 14:58 ibuprofen Allergy Mild Vomiting Verified 12/11/23 14:58 Sulfa (Sulfonamide Allergy Mild Rash Verified 12/11/23 14:58 Antibiotics) Worker's Comp Is this a Worker's Comp case?: No [facility] Disclaimer: The information contained in this section may have been updated after the patient was seen, as this information can be updated by other users. Medical History Headache Anxiety Surgical History History of tonsillectomy History of placement of ear tubes History of cholecystectomy Social History Smoking Status: Current every day smoker tobacco type: cigarettes packs per day: 1 second hand exposure: No alcohol intake: never current occupational status: other Travel in the last 8 weeks: None household members: family housing: house current occupational exposures/hazards: No caffeine: Yes ROS Obtained: Yes All systems reviewed & no additional complaints except as documented and Yes Systems reviewed as appropriate & no additional complaints except as documented Constitutional Constitutional: Reports system reviewed and no additional complaints, except as documented and Reports as per HPI ENT Ears, Nose, Mouth, and Throat: Reports system reviewed and no additional complaints, except as documented and Reports as per HPI Cardiovascular Cardiovascular: Reports system reviewed and no additional complaints, except as documented and Reports as per HPI Respiratory Respiratory: Reports system reviewed and no additional complaints, except as documented and Reports as per HPI Gastrointestinal Gastrointestingal: Reports system reviewed and no additional complaints, except as documented and as per HPI Genitourinary Female Genitourinary: Reports system reviewed and no additional complaints, except as documented, Reports as per HPI, Denies dysuria, Denies flank pain, Denies pelvic pain, Denies urinary frequency and Denies urinary urgency Musculoskeletal Musculoskeletal: Reports system reviewed and no additional complaints, except as documented and Reports as per HPI Comments: pain in left side lower back/hip, tailbone area, buttock that shoots into her left hip area Physical Exam General General appearance: alert and in no apparent distress ENT ENT exam: Present mucous membranes moist Respiratory Respiratory exam: Present normal lung sounds bilaterally; Absent respiratory distress or wheezes Cardiovascular Cardiovascular exam: Present regular rate, normal rhythm and normal heart sounds Abdominal Exam Abdominal exam: Present soft and normal bowel sounds; Absent distention or tenderness Back Exam Back exam: Present tenderness Back 1 view image: 1. reports pain with movement after falling off back of 4 m[address] on Saturday, pain worse with movement no bruising noted Neurological Exam Neurological exam: Present alert, oriented X3 and normal gait Medical Decision Making Medical Records Screening: Per USPSTF and CDC recommendations, given the prevalence of disease in our region, it is our hospital?s policy to screen for HIV and viral Hepatitis for all patients aged 18 and over and those with ongoing risk factors. Cameron Inquiry Pt receiving controlled substance: No Cameron was queried for this patient: No Vital Signs: 04/21/24 15:57 Temperature 97.9 F Temperature Source Oral Pulse Rate [Radial] 101 H Respiratory Rate 18 Blood Pressure [Right Arm] 138/84 Blood Pressure Mean [Right Arm] 102 Blood Pressure Source [Right Arm] Automatic Cuff Blood Pressure Position [Right Arm] Sitting 02 Sat by Pulse Oximetry 100 Oxygen Delivery Method Room Air Radiology Data #1: Image(s): L-Spine Image Reviewed: Yes I have reviewed radiologist's interpretation IMPRESSION: No acute findings. #2: Image(s): Pelvis and Hip Image Reviewed: Yes I have reviewed radiologist's interpretation IMPRESSION: 1. No evidence for acute fracture. 2. Osseous bump at the left femoral head neck junction can be seen with cam type femoroacetabular impingement. Best seen on frog-leg lateral view. #3: Image(s): Other (coccyx) Image Reviewed: Yes I have reviewed radiologist's interpretation IMPRESSION: No acute findings. Medical Decision Narrative: Discussed with patient about transfer to the ED for further work up and possibly CT if warranted and she declined
--- NOTE | 2024-04-21 16:14 | XR_ITS ---
PROCEDURE INFORMATION: Exam: XR Lumbosacral Spine Exam date and time: 04/21/2024 4:33 PM Age: 33 years old Clinical indication: Low back pain TECHNIQUE: Imaging protocol: Radiologic exam of the lumbosacral spine. Views: 4 or 5 views. COMPARISON: CR XR COCCYX 2V 04/21/2024 4:32 PM FINDINGS: Bones/joints: Normal. No acute fracture. Normal alignment. Soft tissues: Unremarkable. IMPRESSION: No acute findings.
--- NOTE | 2024-04-21 16:14 | XR_ITS ---
PROCEDURE INFORMATION: Exam: XR Sacrum and Coccyx, 2 or More Views Exam date and time: 04/21/2024 4:32 PM Age: 33 years old Clinical indication: Pain in coccyx area; Additional info: Fell landed on rock TECHNIQUE: Imaging protocol: XR of the sacrum and coccyx, 2 or more views. COMPARISON: CR XR HIP LT 2-3V W/PELVIS 04/21/2024 4:30 PM FINDINGS: Bones/joints: Normal. No acute fracture. Soft tissues: Normal. IMPRESSION: No acute findings.
--- NOTE | 2024-04-21 16:14 | XR_ITS ---
PROCEDURE INFORMATION: Exam: XR Left Hip Exam date and time: 04/21/2024 4:30 PM Age: 33 years old Clinical indication: Hip pain; Left hip; Additional info: Pain in left hip/buttock TECHNIQUE: Imaging protocol: Radiologic exam of the left hip. Views: 2 or 3 views hip with pelvis when performed. COMPARISON: CT ABDOMEN PELVIS WO CON 11/25/2019 11:11 AM FINDINGS: Bones/joints: Osseous bump at the left femoral head neck junction can be seen with cam type femoroacetabular impingement. Best seen on frog-leg lateral view. No acute fracture. Soft tissues: Unremarkable. IMPRESSION: 1. No evidence for acute fracture. 2. Osseous bump at the left femoral head neck junction can be seen with cam type femoroacetabular impingement. Best seen on frog-leg lateral view.
[2024-04-21 16:20] LABS: UTC Pregnancy Test, Urine Negative (Negative)
[2024-04-21 17:55] VITALS: BP 138/84; PULSE 101; RESP 18; TEMP 36.6; O2SAT 100
== END 2024-04-21 17:55 | disposition home or self-care (01) ==
PROVIDERS: Emergency Provider Nurse Practitioner; PCP Nurse Practitioner Family
DX: M54.50 Low back pain, unspecified (principal); M25.552 Pain in left hip; V98.8XXA Other specified transport accidents, initial encounter; Y93.89 Activity, other specified; Y92.89 Other specified places as the place of occurrence of the external cause
CPT/HCPCS: 72110; 72220; 73502; 81025; 99212; G0381

== ENCOUNTER 2024-08-12 07:32 | Emergency (ER) | payer OTHER, SELFPAY ==
[2024-08-12] VITALS (7 sets, daily range): BP systolic 100–134; BP diastolic 61–78; PULSE 64–89; RESP 18; TEMP 36.8; O2SAT 98–99; BMI 20.2
[2024-08-12 07:49] LABS: Basophils # 0.1 K/mm3 (0-0.2); Basophils % 0.5 % (0.1-2.0); Eosinophils # 0.1 K/mm3 (0.0-0.4); Eosinophils % 0.8 % (0.1-12.0); Hematocrit 48.5 % (37.0-47.0); Hemoglobin 16.3 g/dL (12.2-16.2); Lymphocytes # 2.8 K/mm3 (0.7-4.5); Lymphocytes % 27.8 % (10-50); Mean Corpuscular HGB Conc 33.6 g/dL (31.8-35.4); Mean Corpuscular Hemoglobin 32.1 pg (27.0-31.2); Mean Corpuscular Volume 95.7 fl (81-99); Monocytes # 0.7 K/mm3 (0.1-1.0); Monocytes % 7.2 % (1.7-9.3); Neutrophils # 6.4 K/mm3 (1.8-7.8); Neutrophils % 63.3 % (37.0-80.0); Platelet Count 197 K/mm3 (142-424); Red Blood Count 5.07 M/mm3 (4.20-5.40); Red Cell Distribution Width 13.8 % (11.5-17.5); White Blood Count 10.1 K/mm3 (4.8-10.8)
--- NOTE | 2024-08-12 07:51 | HMH.EDGENADL ---
Discharge Plan Disposition Patient Disposition: Home, Self-Care Condition: Good Prescriptions Prescriptions: No Action levocetirizine 5 mg tablet 5 mg PO DAILY methocarbamol 500 mg tablet 500 mg PO TID PRN (Reason: muscle spasm) Qty: 15 0RF Ubrelvy 100 mg Tablet 100 mg PO CONT Qulipta 60 mg Tablet 60 mg PO DAILY ondansetron HCl 4 mg tablet 4 mg PO TIDP PRN (Reason: Nausea And Vomiting) prednisone 20 mg tablet 20 mg PO DIRECTED hydroxyzine HCl 25 mg tablet 25 mg PO TIDP PRN (Reason: as directed) Referrals Follow up/Referrals: Earl Hong MD [Primary Care Provider] - See instructions Activity Restrictions/Add. Instructions Additional Instructions/Restrictions: You were treated for migraine headache today that resolved after Toradol, Benadryl, Compazine and magnesium sulfate. If your headache returns and is not managed by your home migraine medications, please return for reevaluation. Please follow up with your primary care provider in 2-3 days. Please return to ED if your symptoms worsen, change in location, change in severity, new symptoms develop or if you become concerned for your health. 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 by RN): PT presents today from home by [facility] for evaluation of a headache x 1 week. Pt states the headache came on suddenly to the left side of her head. it has been sharp in nature. Pt states with the onset of the headache she developed left sided weakness and left sided blurred vision. she has also had nausea/diarrhea. IV: 20G LAC VSS BGL 96 History of Present Illness HPI narrative: Patient is a 34-year-old female presenting with headache. Patient has a history of migraines, but states this one is different. She states the headache started 7 days ago and came on suddenly on the left side of her head. She says that the headache has been constant since then and associated with left-sided weakness, left blurry vision and this morning she almost passed out. Patient was prescribed prednisone yesterday and has an abortive migraine medicine as well as a migraine treatment medication. She states she is unable to take ibuprofen as it makes her vomit. She denies new trauma, or recent delivery, hormonal control use, history of DVT/PE. Patient has had nonbloody diarrhea during this time. She denies cough, shortness of breath, chest pain, abdominal pain, dysuria. Related Data Home Medications ?Medication ?Instructions ?Recorded ?Confirmed levocetirizine 5 mg tablet 5 mg PO DAILY 12/11/23 08/12/24 atogepant 60 mg tablet (Qulipta) 60 mg PO DAILY 08/12/24 08/12/24 hydroxyzine HCl 25 mg tablet 25 mg PO TIDP PRN as directed 08/12/24 08/12/24 ondansetron HCl 4 mg tablet 4 mg PO TIDP PRN Nausea And 08/12/24 08/12/24 Vomiting prednisone 20 mg tablet 20 mg PO DIRECTED 08/12/24 08/12/24 ubrogepant 100 mg tablet (Ubrelvy) 100 mg PO CONT 08/12/24 08/12/24 Previous Rx's ?Medication ?Instructions ?Recorded methocarbamol 500 mg tablet 500 mg PO TID PRN muscle spasm #15 04/21/24 tabs Allergies Allergy/AdvReac Type Severity Reaction Status Date / Time chocolate flavor Allergy Mild Rash Verified 08/12/24 08:01 ibuprofen Allergy Mild Vomiting Verified 08/12/24 08:01 Sulfa (Sulfonamide Allergy Mild Rash Verified 08/12/24 08:01 Antibiotics) [facility] Disclaimer: The information contained in this section may have been updated after the patient was seen, as this information can be updated by other users. Medical History Headache Anxiety Surgical History History of tonsillectomy History of placement of ear tubes History of cholecystectomy Social History (Updated 08/12/24 @ 08:40 by Noni Zaman RN) Smoking Status: Never smoker second hand exposure: No alcohol intake: never current occupational status: other Travel in the last 8 weeks: None adopted: No caregiver/support person: No foster care: No household members: family housing: house current occupational exposures/hazards: No sexually active: Yes are you practicing safe sex: Yes caffeine: Yes Have you lived/traveled outside [place] in past 30 days?: No Contact w/someone who lives/traveled outside US past 30 days?: No Exposure to someone with infectious disease in past 14 days?: No Do you have a fever (greater than 100.4 F or 38 C)?: No Have you tested positive for COVID-19: No Exposed to someone with COVID-19 in past 14 days?: No Do you have a sore throat?: No Do you have a cough?: No Do you have any weakness?: No Do you have any diarrhea?: No Are you experiencing any unusual bleeding?: No Do you have any muscle aches/pain?: No Do you have any abdominal pain?: No Are you experiencing loss of taste or smell?: No Other Medical History Have you received the Flu Vaccine for this season: No Have you received the Pneumonia Vaccine: No ROS Obtained: Yes All systems reviewed & no additional complaints except as documented Physical Exam General General appearance: alert and in no apparent distress Head Head exam: atraumatic, normocephalic and normal inspection Eye Eye exam: Present normal appearance, PERRL and EOMI ENT ENT exam: Present normal exam, normal oropharynx, mucous membranes moist and normal external ear exam Neck Neck exam: Present normal inspection, full ROM and trachea midline; Absent meningismus or lymphadenopathy Chest Chest inspection: Present normal inspection and symmetric chest wall rise; Absent tenderness Respiratory Respiratory exam: Present normal lung sounds bilaterally; Absent respiratory distress Cardiovascular Cardiovascular exam: Present regular rate and normal rhythm; Absent JVD Abdominal Exam Abdominal exam: Present soft and normal bowel sounds; Absent distention, tenderness or guarding Extremities Exam Extremities exam: Present normal inspection and full ROM; Absent edema Back Exam Back exam: Present normal inspection; Absent tenderness Neurological Exam Neurological exam: Present alert, oriented X3 and motor sensory deficit (subjective decreased light touch to left face, no loss of sensation.); Absent normal gait Psychiatric Psychiatric exam: Present normal affect and normal mood Skin Skin exam: Present warm, dry, intact and normal color Lymphatic Lymphatic Findings: no adenopathy Medical Decision Making Medical Records Medical records reviewed: Yes I reviewed the patient's medical records. Screening: Per USPSTF and CDC recommendations, given the prevalence of disease in our region, it is our hospital?s policy to screen for HIV and viral Hepatitis for all patients aged 18 and over and those with ongoing risk factors. Cameron Inquiry Pt receiving controlled substance: No Vital Signs: 08/12/24 07:33 08/12/24 08:09 08/12/24 08:16 Temperature 98.2 F Temperature Source Oral Pulse Rate 74 Pulse Rate [Left] 89 Respiratory Rate 18 Blood Pressure 134/75 110/61 Blood Pressure [Right Arm] 125/73 Blood Pressure Mean 87 Blood Pressure Mean [Right Arm] 90 Blood Pressure Source [Right Arm] Automatic Cuff Blood Pressure Position [Right Arm] Sitting 02 Sat by Pulse Oximetry 99 98 99 Oxygen Delivery Method Room Air Room Air 08/12/24 08:30 08/12/24 08:45 08/12/24 09:00 Temperature Temperature Source Pulse Rate 70 64 72 Pulse Rate [Left] Respiratory Rate Blood Pressure 100/61 L 105/62 L 112/61 Blood Pressure [Right Arm] Blood Pressure Mean Blood Pressure Mean [Right Arm] Blood Pressure Source [Right Arm] Blood Pressure Position [Right Arm] 02 Sat by Pulse Oximetry 98 98 98 Oxygen Delivery Method Room Air Room Air Room Air Lab Data Lab results reviewed: Yes I reviewed the patient's lab results. Lab Results 08/12/24 07:30: WBC 10.1, RBC 5.07, Hgb 16.3 H, Hct 48.5 H, MCV 95.7, MCH 32.1 H, MCHC 33.6, RDW 13.8, Plt Count 197, MPV 12.0 H, Neut % (Auto) 63.3, Lymph % (Auto) 27.8, [place] % (Auto) 7.2, Eos % (Auto) 0.8, Baso % (Auto) 0.5, Neut # (Auto) 6.4, Lymph # (Auto) 2.8, [place] # (Auto) 0.7, Eos # (Auto) 0.1, Baso # (Auto) 0.1, Sodium 140, Potassium 4.3, Chloride 107, Carbon Dioxide 24, Anion Gap 13.3, BUN 10, Creatinine 0.60, Estimated Creat Clear 120, Estimated GFR 113, Est GFR ( Amer) 137, Glucose 102 H, Calcium 9.4, Total Bilirubin 0.5, AST 28, ALT 19, Alkaline Phosphatase 78, Total Protein 7.4, Albumin 4.7, Globulin 2.7, Albumin/Globulin Ratio 1.7, Serum HCG, Qual Negative 08/12/24 08:10: Urine Color Yellow, Urine Appearance Clear, Urine pH 6.0, Ur Specific Max 1.010, Urine Protein Negative, Urine Glucose (UA) Negative, Urine Ketones Negative, Urine Blood Negative, Urine Nitrate Negative, Urine Bilirubin Negative, Urine Urobilinogen 0.2, Ur Leukocyte Esterase Negative, Urine RBC None, Urine WBC Occasional, Ur Squamous Epith Cells 3-5, Urine Bacteria None 08/12/24 07:30 08/12/24 07:30 Orders (Tests/Meds): ED MEDICATIONS Discontinued Medications Generic Name Dose Route Start Last Admin Trade Name Freq PRN Reason Stop Dose Admin Diphenhydramine HCl 25 mg 08/12/24 07:41 08/12/24 07:53 Diphenhydramine 50mg/Ml Vial IV 08/12/24 07:42 25 mg ONCE ONE Administration Magnesium Sulfate 2 gm in 50 mls @ 50 mls/hr 08/12/24 07:41 08/12/24 07:53 Magnesium Sulfate 2gm/50ml Premix IV 08/12/24 08:40 50 mls/hr ONCE ONE Administration Ketorolac Tromethamine 15 mg 08/12/24 07:41 08/12/24 07:53 Ketorolac 30mg/Ml Vial IV 08/12/24 07:42 15 mg ONCE ONE Administration Prochlorperazine Edisylate 10 mg 08/12/24 07:41 08/12/24 07:52 Prochlorperazine 10mg/2ml Vial IV 08/12/24 07:42 10 mg ONCE ONE Administration ORDERS Category Date Time Status CBC w/Auto Diff [Complete Blood Count Auto Diff] Stat Lab 08/12/24 07:30 Completed CMP [Comprehensive Metabolic Panel] Stat Lab 08/12/24 07:30 Completed Serum [HCG Qualitative, Serum] Stat Lab 08/12/24 07:30 Completed Urinalysis and Microscopic Stat Lab 08/12/24 08:10 Completed Medical Decision Narrative: Patient is a 34-year-old female presenting with headache for 7 days. Differential diagnosis includes but is not limited to, migraine, status migrainosus, SAH, cavernous venous thrombosis, viral syndrome, among others. Patient has a PMH significant for migraine headaches, however describing this YOUNG as different from her baseline. Initial management will consist of CBC, CMP, urinalysis, beta-hCG and migraine cocktail consisting of Toradol, Benadryl, Compazine, magnesium sulfate. Based on timeline of headache and symptoms, will consider CT imaging on reassessment after migraine cocktail. On evaluation, patient sleeping after administration of migraine cocktail. Patient woken up and stated that her headache was feeling significantly better. Ultimately, CT scan was discussed and considered however patient's symptoms had significantly improved which was more consistent with a complex migraine. On laboratory evaluation, patient has no leukocytosis, hemoglobin 16.3 which is likely hemoconcentrated. CMP is within normal limits. Urinalysis negative for acute cystitis. Patient observed for an additional hour. Patient able to ambulate without difficulty or imbalance which is an additional improvement from her initial presentation. Given that patient's symptoms resolved after migraine cocktail and patient feeling significantly better. Patient requesting to be discharged home at this time. I recommended that she return for migraine treatment, earlier than 7 days, if her medication does not work at home. Patient was in agreement with this plan. Patient discharged in stable condition. Vanessa Rose MD PGY-3, Emergency Medicine Critical Care Critical Care Time Critical Care Time: No
[2024-08-12] MEDS: PROCHLORPERAZINE 10MG/2ML VIAL 10 MG IV (07:52)
[2024-08-12] MEDS: KETOROLAC 30MG/ML VIAL 15 MG IV (07:53)
[2024-08-12] MEDS: MAGNESIUM SULFATE IN WATER 2 GM/50 ML PIGGYBACK IV (07:53)
[2024-08-12] MEDS: diphenhydrAMINE 50MG/ML VIAL 25 MG IV (07:53)
--- NOTE | 2024-08-12 07:53 | PC.NURSE ---
0753 Pt provided with warm blanket. Resting in bed with the call light in reach. Declines any other needs at this time.
[2024-08-12 07:58] LABS: Alanine Aminotransferase 19 U/L (12-78); Albumin Level 4.7 g/dl (3.5-5.0); Albumin/Globulin Ratio 1.7 (1.1-1.8); Alkaline Phosphatase 78 U/L (38-126); Anion Gap 13.3 mEq/L (5-15); Aspartate Amino Transferase 28 U/L (14-36); Bilirubin,Total 0.5 mg/dl (0.2-1.3); Blood Urea Nitrogen 10 mg/dl (7-17); Calcium 9.4 mg/dl (8.4-10.2); Carbon Dioxide 24 mmol/L (22.0-30.0); Chloride 107 mmol/L (98-107); Creatinine Clearance Estimated 120 mL/min (50-200); Estimated Glomerular Filt Rate 113 ml/min (>60); GFR (African American) 137 ML/MIN (>60); Globulin 2.7 g/dL (1.3-3.2); Glucose 102 mg/dl (74-100); Potassium 4.3 mmoL/L (3.5-5.1); Sodium 140 mmol/L (136-145); Total Protein,Serum 7.4 g/dl (6.3-8.2)
--- NOTE | 2024-08-12 08:13 | PC.NURSE ---
0841 Pt assisted to the bathroom by wheelchair.
--- NOTE | 2024-08-12 08:26 | PC.NURSE ---
0876 Milton TERRELL to bedside reassessing patient. Pt states headache is better at this time.
[2024-08-12 08:36] LABS: Microscopic, Urine URINE MICROSCOPIC (MICROSCOPIC)
[2024-08-12 08:38] LABS: HCG Qualitative, Serum Negative (Negative)
--- NOTE | 2024-08-12 08:40 | PC.NURSE ---
Rounded on the patient. The patient voices that she does not need anything at this time. Call light is within reach of the patient. Family member is present at the bedside.
[2024-08-12 08:42] LABS: Appearance,Urine CLEAR (Clear); Bilirubin,Urine Negative (Negative); Blood, Urine Negative (Negative); Color,Urine YELLOW (Yellow); Glucose,Urine (UA) Negative (Negative); Ketones,Urine Negative (Negative); Leukocyte Esterase,Urine Negative (Negative); Nitrate,Urine Negative (Negative); Protein,Urine Negative (Negative); Urobilinogen,Urine 0.2 EU/dl (0.2)
--- NOTE | 2024-08-12 09:06 | PC.NURSE ---
0906 Pt states pain has improved at this time. Rates it a 2/10. Provided patient with sprite and crackers. Denies any other needs at this time.
[2024-08-12 09:11] LABS: WBC,Urine Occasional #/hpf (0-3)
--- NOTE | 2024-08-12 09:41 | PC.NURSE ---
Milton TERRELL to bedside.
== END 2024-08-12 09:51 | disposition home or self-care (01) ==
PROVIDERS: Emergency Provider Student in an Organized Health Care Education/Training Program; PCP Internal Medicine Adolescent Medicine
DX: G43.409 Hemiplegic migraine, not intractable, without status migrainosus (principal); R53.1 Weakness; H53.8 Other visual disturbances; R11.0 Nausea; R19.7 Diarrhea, unspecified
CPT/HCPCS: 80053; 81001; 84703; 85025; 96365; 96374; 96375; 99283; J0780; J1200; J1885; J3475

== ENCOUNTER 2024-09-05 06:25 | Emergency (ER) | payer OTHER, SELFPAY ==
[2024-09-05 06:26] VITALS: BP 149/93; PULSE 132; RESP 18; TEMP 36.6; O2SAT 99; BMI 20.7
--- NOTE | 2024-09-05 06:31 | CT_ITS ---
PROCEDURE INFORMATION: Exam: CTA Head With Contrast, Arteriography Exam date and time: 09/05/2024 7:18 AM Age: 34 years old Clinical indication: Pain; Headache; Additional info: 3 weeks new headache TECHNIQUE: Imaging protocol: Computed tomographic angiography of the head with contrast. Exam focused on the arteries. 3D rendering (Not supervised by radiologist): MIP and/or 3D reconstructed images were created by the technologist. Radiation optimization: All CT scans at this facility use at least one of these dose optimization techniques: automated exposure control; mA and/or kV adjustment per patient size (includes targeted exams where dose is matched to clinical indication); or iterative reconstruction. Contrast material: ISOVUE; Contrast volume: 80 ml; Contrast route: INTRAVENOUS (IV); COMPARISON: CT VENOGRAM HEAD 09/05/2024 7:18 AM FINDINGS: ANTERIOR CIRCULATION: Right internal carotid artery: Intracranial segment is patent with no significant stenosis or occlusion. No aneurysm. Right middle cerebral artery: No occlusion or significant stenosis. No aneurysm. Right anterior cerebral artery: No occlusion or significant stenosis. No aneurysm. Left internal carotid artery: Intracranial segment is patent with no significant stenosis or occlusion. No aneurysm. Left middle cerebral artery: No occlusion or significant stenosis. No aneurysm. Left anterior cerebral artery: No occlusion or significant stenosis. No aneurysm. POSTERIOR CIRCULATION: Right vertebral artery: No occlusion or significant stenosis. No aneurysm. Left vertebral artery: No occlusion or significant stenosis. No aneurysm. Basilar artery: No occlusion or significant stenosis. No aneurysm. Right posterior cerebral artery: No occlusion or significant stenosis. No aneurysm. Left posterior cerebral artery: No occlusion or significant stenosis. No aneurysm. Brain: No definite mass, mass effect, or midline shift. Cerebral ventricles: No ventriculomegaly. Bones/joints: Unremarkable. No acute fracture. Soft tissues: Unremarkable. IMPRESSION: [id number] is intact.
--- NOTE | 2024-09-05 06:31 | CT_ITS ---
PROCEDURE INFORMATION: Exam: CTA Head With Contrast, Venography Exam date and time: 09/05/2024 7:18 AM Age: 34 years old Clinical indication: Pain; Headache; Additional info: 3 weeks new headache TECHNIQUE: Imaging protocol: Computed tomography angiography of the head with contrast. Exam focused on the veins. 3D rendering (Not supervised by radiologist): MIP and/or 3D reconstructed images were created by the technologist. Radiation optimization: All CT scans at this facility use at least one of these dose optimization techniques: automated exposure control; mA and/or kV adjustment per patient size (includes targeted exams where dose is matched to clinical indication); or iterative reconstruction. Contrast material: ISOVUE; Contrast volume: 80 ml; Contrast route: INTRAVENOUS (IV); COMPARISON: 1. CT ANGIO HEAD 09/05/2024 7:[address] HEAD/BRAIN WO CON 09/05/2024 7:16 AM FINDINGS: Superior sagittal sinus: The superior sagittal sinus is patent. Superficial cortical veins are patent. Straight sinus: Straight sinus and internal cerebral veins are patent. Transverse sinuses: See Sigmoid sinuses finding. Sigmoid sinuses: Bilateral transverse sinus, sigmoid sinus and jugular sinuses are patent. Internal jugular veins: See Sigmoid sinuses finding. Brain: No definite mass, mass effect, or midline shift. Cerebral ventricles: No ventriculomegaly. Soft tissues: Unremarkable. IMPRESSION: No evidence of dural venous sinus thrombosis.
--- NOTE | 2024-09-05 06:31 | CT_ITS ---
PROCEDURE INFORMATION: Exam: CT Head Without Contrast Exam date and time: 09/05/2024 7:16 AM Age: 34 years old Clinical indication: Pain; Headache; Additional info: 3 weeks new headache TECHNIQUE: Imaging protocol: Computed tomography of the head without contrast. Radiation optimization: All CT scans at this facility use at least one of these dose optimization techniques: automated exposure control; mA and/or kV adjustment per patient size (includes targeted exams where dose is matched to clinical indication); or iterative reconstruction. COMPARISON: CT HEAD/BRAIN WO CON 05/07/2022 8:55 AM FINDINGS: Brain: Madden-white matter differentiation and sulcation pattern is normal. There is normal density in the basal ganglia and thalamus. There is no intracranial hemorrhage. There are no pathologic extra-axial fluid collections. Cerebral ventricles: No ventriculomegaly. Paranasal sinuses: Visualized sinuses are unremarkable. No fluid levels. Mastoid air cells: Visualized mastoid air cells are well aerated. Bones: Unremarkable. No acute fracture. Soft tissues: Unremarkable. IMPRESSION: No acute intracranial pathology.
--- NOTE | 2024-09-05 06:39 | HMH.EDGENADL ---
Discharge Plan Disposition Patient Disposition: Home, Self-Care Prescriptions Prescriptions: New Nurtec ODT 75 mg tablet,disintegrating 75 mg PO DAILY PRN (Reason: migraine headache) Qty: 30 0RF Rx Instructions: Only one per 24 hour period at first onset of migraine Referrals Follow up/Referrals: Earl Hong MD [Primary Care Provider] - See instructions Activity Restrictions/Add. Instructions Additional Instructions/Restrictions: Call your family doctor to establish care for this visit to the emergency department and schedule follow-up within 48 hours to ensure improvement. If you have any worsening of your condition or any other concerning signs or symptoms, return to the emergency department or your primary care doctor for further evaluation. Discontinue taking sumatriptan. Begin taking amitriptyline each night for controller. Nurtec once daily as needed at the first onset of migraine. Clinical Impressions Clinical Impression: Migraine headache Print Language Print Language: Moroccan Discharge ED Provider: Patrick Fletcher General Adult HPI <Skip Smith MD - Last Filed: 09/05/24 06:49> General Chief complaint: Headache Stated complaint: migraine, pain, pressure, blurry vision Time Seen by Provider: 09/05/24 06:30 Mode of Arrival: Ambulatory Source of Information: Patient Limitations: No Limitations Description of Symptoms (Recalled from ER Triage Doc. by RN): Patient was at [facility] last night for a migraine; has had a migraine on both sides of her head for 3 weeks. Has associated blurry vision with the migraine. History of Present Illness HPI narrative: 34-year-old female without significant past medical history presents for headache. She reports that she has had a constant headache for the last 3 weeks. It was primarily on the left side and associated with left eye blurry vision, and is now bilateral in nature. She reports blurry vision. She also had a episode where her arm and leg were tingly earlier on in this time course. She has been seen several times in the ER and by PCP and has been started on triptans, amitriptyline, and other medications but they have not helped. The headache has been constant. She denies any current numbness tingling or weakness. No mental status changes. No fever at home. She has not had any imaging to this point Related Data Previous Rx's ?Medication ?Instructions ?Recorded rimegepant 75 mg disintegrating 75 mg PO DAILY PRN migraine 09/05/24 tablet (Nurtec ODT) headache #30 tabs Allergies Allergy/AdvReac Type Severity Reaction Status Date / Time chocolate flavor Allergy Mild Rash Verified 08/12/24 08:01 ibuprofen Allergy Mild Vomiting Verified 08/12/24 08:01 Sulfa (Sulfonamide Allergy Mild Rash Verified 08/12/24 08:01 Antibiotics) [facility] <Skip Smith MD - Last Filed: 09/05/24 06:49> [facility] Disclaimer: The information contained in this section may have been updated after the patient was seen, as this information can be updated by other users. Medical History Headache Anxiety Surgical History History of tonsillectomy History of placement of ear tubes History of cholecystectomy Social History (Updated 08/12/24 @ 08:40 by Noni Zaman RN) Smoking Status: Current every day smoker tobacco type: cigarettes packs per day: 1 second hand exposure: No alcohol intake: never current occupational status: other Travel in the last 8 weeks: None adopted: No caregiver/support person: No foster care: No household members: family housing: house current occupational exposures/hazards: No sexually active: Yes are you practicing safe sex: Yes caffeine: Yes Have you lived/traveled outside [place] in past 30 days?: No Contact w/someone who lives/traveled outside US past 30 days?: No Exposure to someone with infectious disease in past 14 days?: No Do you have a fever (greater than 100.4 F or 38 C)?: No Have you tested positive for COVID-19: No Exposed to someone with COVID-19 in past 14 days?: No Do you have a sore throat?: No Do you have a cough?: No Do you have any weakness?: No Do you have any diarrhea?: No Are you experiencing any unusual bleeding?: No Do you have any muscle aches/pain?: No Do you have any abdominal pain?: No Are you experiencing loss of taste or smell?: No Other Medical History Have you received the Flu Vaccine for this season: No Have you received the Pneumonia Vaccine: No <Skip Smith MD - Last Filed: 09/05/24 06:49> ROS Obtained: Yes All systems reviewed & no additional complaints except as documented Physical Exam <Skip Smith MD - Last Filed: 09/05/24 06:49> General General appearance: alert and in no apparent distress Head Head exam: atraumatic and normocephalic Eye Eye exam: Present normal appearance, PERRL and EOMI ENT ENT exam: Present normal oropharynx and normal external ear exam Neck Neck exam: Present normal inspection and full ROM Chest Chest inspection: Present normal inspection and symmetric chest wall rise; Absent tenderness Respiratory Respiratory exam: Present normal lung sounds bilaterally; Absent respiratory distress Cardiovascular Cardiovascular exam: Present regular rate and normal rhythm Abdominal Exam Abdominal exam: Present soft; Absent distention, tenderness or guarding Extremities Exam Extremities exam: Present normal inspection; Absent edema or joint swelling Back Exam Back exam: Present normal inspection; Absent tenderness Neurological Exam Neurological exam: Present alert and oriented X3; Absent motor sensory deficit Psychiatric Psychiatric exam: Present normal affect and normal mood Skin Skin exam: Present warm, dry and normal color Lymphatic Lymphatic Findings: no adenopathy Medical Decision Making <Skip Smith MD - Last Filed: 09/05/24 06:49> Medical Records Medical records reviewed: Yes I reviewed the patient's medical records. Screening: Per USPSTF and CDC recommendations, given the prevalence of disease in our region, it is our hospital?s policy to screen for HIV and viral Hepatitis for all patients aged 18 and over and those with ongoing risk factors. Cameron Inquiry Pt receiving controlled substance: No Cameron was queried for this patient: No Vital Signs: 09/05/24 06:26 09/05/24 06:45 Temperature 97.9 F Temperature Source Oral Pulse Rate 116 H Pulse Rate [Right Radial] 132 H Respiratory Rate 18 Blood Pressure 149/93 H Blood Pressure [Right Arm] 149/93 H Blood Pressure Mean [Right Arm] 111 Blood Pressure Source [Right Arm] Automatic Cuff Blood Pressure Position [Right Arm] Supine 02 Sat by Pulse Oximetry 99 99 Oxygen Delivery Method Room Air Lab Data Lab results reviewed: Yes I reviewed the patient's lab results. Lab Results 09/05/24 06:35: WBC 11.1 H, RBC 4.96, Hgb 16.0, Hct 46.5, MCV 93.8, MCH 32.3 H, MCHC 34.4, RDW 13.6, Plt Count 242, MPV 11.3 H, Neut % (Auto) 90.8 H, Lymph % (Auto) 7.6 L, [place] % (Auto) 0.9 L, Eos % (Auto) 0.0 L, Baso % (Auto) 0.3, Neut # (Auto) 10.1 H, Lymph # (Auto) 0.8, [place] # (Auto) 0.1, Eos # (Auto) 0.0, Baso # (Auto) 0.0, Sodium 137, Potassium 3.9, Chloride 104, Carbon Dioxide 22, Anion Gap 14.9, BUN 7, Creatinine 0.60, Estimated Creat Clear 123, Estimated GFR 113, Est GFR ( Amer) 137, Glucose 240 H, Calcium 9.4, Total Bilirubin 0.7, AST 31, ALT 30, Alkaline Phosphatase 90, Total Protein 8.0, Albumin 4.8, Globulin 3.2, Albumin/Globulin Ratio 1.5, Serum HCG, Qual Negative 09/05/24 06:35 09/05/24 06:35 Orders (Tests/Meds): ED MEDICATIONS Discontinued Medications Generic Name Dose Route Start Last Admin Trade Name Freq PRN Reason Stop Dose Admin Acetaminophen 1,000 mg 09/05/24 06:34 09/05/24 06:43 Acetaminophen 1,000mg/100ml Vial IV 09/05/24 06:35 1,000 mg ONCE ONE Administration Dexamethasone Sodium Phosphate 10 mg 09/05/24 07:24 Dexamethasone 4mg/Ml 1ml Vial IV 09/05/24 07:25 ONCE ONE Lactated Ringer's 1,000 mls @ 999 mls/hr 09/05/24 06:45 09/05/24 06:58 Lactated Ringer's 1000 Ml Bag IV 09/05/24 07:45 999 mls/hr .Q1H1M JANETTE Administration Magnesium Sulfate 2 gm in 50 mls @ 150 mls/hr 09/05/24 06:31 09/05/24 06:58 Magnesium Sulfate 2gm/50ml Premix IV 09/05/24 06:50 150 mls/hr ONCE ONE Administration Iopamidol 80 ml 09/05/24 07:28 09/05/24 07:30 Iopamidol-370 (76%);100ml Bottle IV 09/05/24 07:29 80 ml ONCE ONE Administration Ketorolac Tromethamine 15 mg 09/05/24 07:24 Ketorolac 30mg/Ml Vial IV 09/05/24 07:25 ONCE ONE Prochlorperazine Edisylate 10 mg 09/05/24 06:31 09/05/24 06:43 Prochlorperazine 10mg/2ml Vial IV 09/05/24 06:32 10 mg ONCE ONE Administration Sodium Chloride 10 ml 09/05/24 07:28 09/05/24 07:29 Sodium Chloride 0.9% 10ml Syr (Rad Only) IV 09/05/24 07:29 10 ml ONCE ONE Administration Sodium Chloride 50 ml 09/05/24 07:28 09/05/24 07:29 0.9 % Sodium Chloride 50 Ml Vial IV 09/05/24 07:29 50 ml ONCE ONE Administration ORDERS Category Date Time Status CT Venogram head Stat Cat Scan 09/05/24 06:[address] angio head Stat Cat Scan 09/05/24 06:[address] head/brain wo con Stat Cat Scan 09/05/24 06:31 Taken CBC w/Auto Diff [Complete Blood Count Auto Diff] Stat Lab 09/05/24 06:35 Results CMP [Comprehensive Metabolic Panel] Stat Lab 09/05/24 06:35 Completed HCG Qualitative, Serum Stat Lab 09/05/24 06:35 Completed ECG Data Tracing #1: I reviewed this ECG and interpreted as documented below: Sinus tachycardia, no concerning ST or T wave changes, no evidence of arrhythmia. ECG initial impression date: 09/05/24 ECG initial impression time: 06:48 Medical Decision Narrative: 34-year-old female without significant past medical history presents for 3 weeks of worsening headache unresponsive to medication. History was obtained via interactive discussion with patient, family, chart review. On arrival, patient is [afebrile, hemodynamically stable, satting appropriately, alert, oriented x4, GCS 15], moving all extremities spontaneously. Full physical exam performed and significant for no significant physical exam abnormality Differential includes but is not limited to migraine headache, tension headache, intracranial lesion, aneurysm, cerebral vein thrombosis. Patient was given 1 L IV fluid bolus, magnesium, Tylenol, Compazine for symptomatic management and correction of underlying abnormalities. Workup initiated including CBC CMP test CT head CTA head CTV. At this time care handed off to oncoming physician. <Patrick Fletcher MD - Last Filed: 09/05/24 08:26> Vital Signs: 09/05/24 06:26 09/05/24 06:45 Temperature 97.9 F Temperature Source Oral Pulse Rate 116 H Pulse Rate [Right Radial] 132 H Respiratory Rate 18 Blood Pressure 149/93 H Blood Pressure [Right Arm] 149/93 H Blood Pressure Mean [Right Arm] 111 Blood Pressure Source [Right Arm] Automatic Cuff Blood Pressure Position [Right Arm] Supine 02 Sat by Pulse Oximetry 99 99 Oxygen Delivery Method Room Air Lab Data Lab Results 09/05/24 06:35: WBC 11.1 H, RBC 4.96, Hgb 16.0, Hct 46.5, MCV 93.8, MCH 32.3 H, MCHC 34.4, RDW 13.6, Plt Count 242, MPV 11.3 H, Neut % (Auto) 90.8 H, Lymph % (Auto) 7.6 L, [place] % (Auto) 0.9 L, Eos % (Auto) 0.0 L, Baso % (Auto) 0.3, Neut # (Auto) 10.1 H, Lymph # (Auto) 0.8, [place] # (Auto) 0.1, Eos # (Auto) 0.0, Baso # (Auto) 0.0, Sodium 137, Potassium 3.9, Chloride 104, Carbon Dioxide 22, Anion Gap 14.9, BUN 7, Creatinine 0.60, Estimated Creat Clear 123, Estimated GFR 113, Est GFR ( Amer) 137, Glucose 240 H, Calcium 9.4, Total Bilirubin 0.7, AST 31, ALT 30, Alkaline Phosphatase 90, Total Protein 8.0, Albumin 4.8, Globulin 3.2, Albumin/Globulin Ratio 1.5, Serum HCG, Qual Negative Orders (Tests/Meds): ED MEDICATIONS Discontinued Medications Generic Name Dose Route Start Last Admin Trade Name Freq PRN Reason Stop Dose Admin Acetaminophen 1,000 mg 09/05/24 06:34 09/05/24 06:43 Acetaminophen 1,000mg/100ml Vial IV 09/05/24 06:35 1,000 mg ONCE ONE Administration Dexamethasone Sodium Phosphate 10 mg 09/05/24 07:24 Dexamethasone 4mg/Ml 1ml Vial IV 09/05/24 07:25 ONCE ONE Lactated Ringer's 1,000 mls @ 999 mls/hr 09/05/24 06:45 09/05/24 06:58 Lactated Ringer's 1000 Ml Bag IV 09/05/24 07:45 999 mls/hr .Q1H1M JANETTE Administration Magnesium Sulfate 2 gm in 50 mls @ 150 mls/hr 09/05/24 06:31 09/05/24 06:58 Magnesium Sulfate 2gm/50ml Premix IV 09/05/24 06:50 150 mls/hr ONCE ONE Administration Iopamidol 80 ml 09/05/24 07:28 09/05/24 07:30 Iopamidol-370 (76%);100ml Bottle IV 09/05/24 07:29 80 ml ONCE ONE Administration Ketorolac Tromethamine 15 mg 09/05/24 07:24 Ketorolac 30mg/Ml Vial IV 09/05/24 07:25 ONCE ONE Prochlorperazine Edisylate 10 mg 09/05/24 06:31 09/05/24 06:43 Prochlorperazine 10mg/2ml Vial IV 09/05/24 06:32 10 mg ONCE ONE Administration Sodium Chloride 10 ml 09/05/24 07:28 09/05/24 07:29 Sodium Chloride 0.9% 10ml Syr (Rad Only) IV 09/05/24 07:29 10 ml ONCE ONE Administration Sodium Chloride 50 ml 09/05/24 07:28 09/05/24 07:29 0.9 % Sodium Chloride 50 Ml Vial IV 09/05/24 07:29 50 ml ONCE ONE Administration ORDERS Category Date Time Status CT Venogram head Stat Cat Scan 09/05/24 06:[address] angio head Stat Cat Scan 09/05/24 06:[address] head/brain wo con Stat Cat Scan 09/05/24 06:31 Taken CBC w/Auto Diff [Complete Blood Count Auto Diff] Stat Lab 09/05/24 06:35 Results CMP [Comprehensive Metabolic Panel] Stat Lab 09/05/24 06:35 Completed HCG Qualitative, Serum Stat Lab 09/05/24 06:35 Completed Medical Decision Narrative: 34-year-old female without significant past medical history presents for 3 weeks of worsening headache unresponsive to medication. History was obtained via interactive discussion with patient, family, chart review. On arrival, patient is afebrile, hemodynamically stable, satting appropriately, alert, oriented x4, GCS 15, moving all extremities spontaneously. Full physical exam performed and significant for no significant physical exam abnormality Differential includes but is not limited to migraine headache, tension headache, intracranial lesion, aneurysm, cerebral vein thrombosis. Patient was given 1 L IV fluid bolus, magnesium, Tylenol, Compazine for symptomatic management and correction of underlying abnormalities. Workup initiated including CBC CMP test CT head CTA head CTV. At this time care handed off to oncoming physician. Justine: I assumed primary responsibility for this patient after signout from previous physician. Agree with assessment above. After test resulted as negative, Toradol and dexamethasone were added onto migraine cocktail. On my evaluation, patient neurologically intact and states that her headache after much better, 2-3 out of 10. Independent interpretation of workup demonstrates mild leukocytosis, this likely due to steroid recently received an outside hospital. Patient's chemistry nonactionable, negative. Independent interpretation of patient's imaging without intracranial mass or abnormality. No vascular abnormality of the head or neck. No cerebral DVT. Because patient at baseline without signs or symptoms of clinical decompensation, deemed appropriate for discharge. Results were relayed to patient who voiced understanding and were agreeable to outpatient management and follow up. I discussed my clinical impression with patient and answered all questions. At this time, the evidence for any other entities in the differential is insufficient to warrant any further testing or ED observation. This was explained as well. Advisory was given that persistent or worsening symptoms require further evaluation. I confirmed the understanding of this discussion. Procedures <Skip Smith MD - Last Filed: 09/05/24 06:49> Risk/Benefits of Procedure(s) Were Explained: Yes Critical Care <Skip Smith MD - Last Filed: 09/05/24 06:49> Critical Care Time Critical Care Time: No
[2024-09-05] MEDS: PROCHLORPERAZINE 10MG/2ML VIAL 10 MG IV (06:43)
[2024-09-05] MEDS: ACETAMINOPHEN 1,000MG/100ML VIAL 1000 MG IV (06:43)
[2024-09-05 06:44] LABS: Basophils % 0.3 % (0.1-2.0); Hematocrit 46.5 % (37.0-47.0); Lymphocytes # 0.8 K/mm3 (0.7-4.5); Lymphocytes % 7.6 % (10-50); Mean Corpuscular HGB Conc 34.4 g/dL (31.8-35.4); Mean Corpuscular Hemoglobin 32.3 pg (27.0-31.2); Mean Corpuscular Volume 93.8 fl (81-99); Mean Platelet Volume 11.3 fl (7.4-10.4); Monocytes # 0.1 K/mm3 (0.1-1.0); Monocytes % 0.9 % (1.7-9.3); Neutrophils # 10.1 K/mm3 (1.8-7.8); Neutrophils % 90.8 % (37.0-80.0); Platelet Count 242 K/mm3 (142-424); Red Blood Count 4.96 M/mm3 (4.20-5.40); Red Cell Distribution Width 13.6 % (11.5-17.5); White Blood Count 11.1 K/mm3 (4.8-10.8)
--- NOTE | 2024-09-05 06:44 | ECG_ITS ---
APPROVED REPORT Exam: Resting ECG HR:114 bpm ECG Measurements Heart Rate 114 AXES DE 122 P 65 QRSd 78 QRS 83 QT 324 T 43 QTc 392 Conclusion Sinus tachycardia Electronically signed by : SERINA RODRIGUEZ, 09/05/2024 09:36:07
[2024-09-05 06:45] VITALS: BP 149/93; PULSE 116; O2SAT 99
[2024-09-05] MEDS: MAGNESIUM SULFATE IN WATER 2 GM/50 ML PIGGYBACK IV (06:58)
[2024-09-05] MEDS: LACTATED RINGERS 1000ML 1,000 ML 999 ML IV (06:58)
[2024-09-05 07:00] LABS: HCG Qualitative, Serum Negative (Negative)
[2024-09-05 07:10] LABS: Albumin Level 4.8 g/dl (3.5-5.0); Chloride 104 mmol/L (98-107)
[2024-09-05 07:11] LABS: Potassium 3.9 mmoL/L (3.5-5.1); Sodium 137 mmol/L (136-145)
[2024-09-05 07:13] LABS: Alanine Aminotransferase 30 U/L (12-78); Albumin/Globulin Ratio 1.5 (1.1-1.8); Anion Gap 14.9 mEq/L (5-15); Aspartate Amino Transferase 31 U/L (14-36); Blood Urea Nitrogen 7 mg/dl (7-17); Carbon Dioxide 22 mmol/L (22.0-30.0); Creatinine Clearance Estimated 123 mL/min (50-200); Estimated Glomerular Filt Rate 113 ml/min (>60); GFR (African American) 137 ML/MIN (>60); Globulin 3.2 g/dL (1.3-3.2)
[2024-09-05 07:14] LABS: Alkaline Phosphatase 90 U/L (38-126); Bilirubin,Total 0.7 mg/dl (0.2-1.3); Calcium 9.4 mg/dl (8.4-10.2); Glucose 240 mg/dl (74-100)
--- NOTE | 2024-09-05 07:15 | PC.NURSE ---
Pt to ct scan via wheelchair
[2024-09-05 07:17] LABS: MANUAL DIFFERENTIAL MANUAL DIFFERENTIAL (MANUAL DIFF)
[2024-09-05] MEDS: 0.9 % SODIUM CHLORIDE 50 ML VIAL IV (07:29)
[2024-09-05] MEDS: SODIUM CHLORIDE 0.9% 10ML SYR (RAD ONLY) 10 ML IV (07:29)
[2024-09-05] MEDS: IOPAMIDOL-370 (76%);100ML BOTTLE 80 ML IV (07:30)
--- NOTE | 2024-09-05 07:48 | PC.NURSE ---
0730- Patient reports improvement in pain level, states that pain is 3/10. Patient resting in darkened room, awaiting CT results and disposition. Patient expresses no needs at this time. Magnesium and IV fluids continue to infuse. 0745- To beside to medicate patient, patient reports that she feels much better and does not feel like she needs additional medication at this point. Patient reports that she was given steroids last night and was unable to sleep. Patient ambulatory to restroom without difficulty. She also was given Toradol at that time. ED provider notified, no new orders at this time.
--- NOTE | 2024-09-05 08:00 | PC.NURSE ---
0800- PO fluids and warm blanket provided to patient. Patient expresses no other needs at this time. A & O x 4. Awaiting disposition.
--- NOTE | 2024-09-05 08:19 | PC.NURSE ---
ER md at bedside for dispo decision
[2024-09-05 08:28] VITALS: BP 115/60; PULSE 98; RESP 16; TEMP 36.6; O2SAT 98
[2024-09-05 09:34] LABS: Lymphocytes % 10 % (10-50); Monocytes % 3 % (2-9); Neutrophils % 87 % (42-76); Platelet Estimate Normal; RBC Morphology Normal; Total Cells Counted 100
== END 2024-09-05 08:32 | disposition home or self-care (01) ==
PROVIDERS: Emergency Medicine; Emergency Provider Emergency Medicine; PCP Internal Medicine Adolescent Medicine
DX: G43.909 Migraine, unspecified, not intractable, without status migrainosus (principal); H53.8 Other visual disturbances; R20.2 Paresthesia of skin; F17.210 Nicotine dependence, cigarettes, uncomplicated
CPT/HCPCS: 70450; 70496; 80053; 84703; 85007; 85025; 85027; 93005; 96361; 96365; 96374; 96375; 99285; J0131; J0780; J3475; J7120; Q9967

== ENCOUNTER 2024-09-15 07:41 | Outpatient (CLI) | payer OTHER, SELFPAY ==
--- NOTE | 2024-09-15 07:49 | MR_ITS ---
FINAL REPORT TECHNIQUE: Multiplanar MR, without and with gadolinium enhancement CLINICAL HISTORY: VISUAL CHANGES MIGRANES ON LEFT SIDED WITH LEFT SIDED BLURRY VISION X 3 WEEKS FINDINGS: Diffusion sequences show no signal abnormality to indicate acute infarct. No mass, hemorrhage or edema is seen. Ventricles are normal. Major vascular flow voids are intact. Following contrast administration, no mass or abnormal enhancement is seen. IMPRESSION: Unremarkable MR evaluation the brain with contrast Reviewed, Interpreted and Dictated by Hafsa Howe MD Transcribed by Tai Fields Authenticated and . [facility]
[2024-09-15] MEDS: GADOTERIDOL INJ 20ML SYRINGE 12 ML IV (08:52)
[2024-09-15] MEDS: SODIUM CHLORIDE 0.9% 10ML SYR (RAD ONLY) 10 ML IV (08:52)
== END 2024-09-15 23:59 | disposition home or self-care (01) ==
LOC: RAD 07:41
PROVIDERS: PCP Nurse Practitioner; Visit Provider Nurse Practitioner
DX: G43.109 Migraine with aura, not intractable, without status migrainosus (principal); H53.8 Other visual disturbances
CPT/HCPCS: 70553; A9576